=== PATIENT | male | born 1970 | race African-American/Black ===

== ENCOUNTER 2017-01-13 08:13 | Emergency (ER) | payer MEDICARE, MEDICAID ==
[~2017-01-13] VITALS: Ht 180.3 cm; Wt 71.0 kg
[~2017-01-13 08:13] MED LIST: HYDR-4133 PO; SEVE800T8 PO; [UNRECOGNIZED DRUG - CODE] PO
[2017-01-13 10:51] VITALS: BP 146/96
== END 2017-01-13 10:53 | disposition left against medical advice (07) ==
LOC: ER 08:13
DX: H61.23 Impacted cerumen, bilateral (principal); I12.0 Hypertensive chronic kidney disease with stage 5 chronic kidney disease or end stage renal disease; N18.6 End stage renal disease; F12.10 Cannabis abuse, uncomplicated; Z99.2 Dependence on renal dialysis
CPT/HCPCS: 69209; 99283

== ENCOUNTER 2017-01-17 04:07 | Inpatient (IN) | payer MEDICARE, MEDICAID ==
[~2017-01-17] VITALS: Ht 177.8 cm; Wt 68.0 kg
[2017-01-17 05:03] LABS: BASOPHILS % 1.2 % (0.0-2.0); EOSINOPHILS % 3.7 % (0.0-5.0); HEMOGLOBIN. 14.1 g/dL (14.0-18.0); LYMPHOCYTES % 13.9 % (20.0-50.0); MEAN CORPUSCULAR HEMOGLOBIN 30.8 pg (28.0-32.0); MEAN CORPUSCULAR VOLUME 91.9 fL (80.0-94.0); MEAN PLATELET VOLUME 7.9 fl (7.4-10.4); MONOCYTES % 12.3 % (2.0-8.0); NEUTROPHILS % 68.9 % (40.0-76.0); PLATELET 222 x1000/uL (130-400); RED BLOOD CELL COUNT 4.57 mill/uL (4.7-6.1); RED CELL DISTRIBUTION WIDTH 16.3 % (11.6-14.6)
[2017-01-17 05:07] LABS: INR 1.1
[2017-01-17 05:18] LABS: CARBON DIOXIDE 34 mEq/L (21-32); CHLORIDE 96 mEq/L (98-107); ETHANOL BLOOD < 10 mg/dL; TROPONIN I 0.03 ng/mL (0.00-0.04)
[2017-01-17] MEDS ORDERED: INSULIN REGULAR (HUMULIN R) 300UNITS/3ML IV SCH (05:45)
[2017-01-17] MEDS ORDERED: SODIUM BICARBONATE 8.4% 1 MEQ/ML 50ML SYR IV SCH (05:45)
[2017-01-17] MEDS ORDERED: CALCIUM CHLORIDE 1GM/10ML SYR IV SCH (05:45)
[2017-01-17] MEDS ORDERED: DEXTROSE 50% WATER 50ML SYRINGE IV SCH (05:45)
[2017-01-17] MEDS ORDERED: SODIUM POLYSTYRENE SULFONATE 15 G/60 ML BOT PO SCH (05:45)
[2017-01-17] MEDS ORDERED: NITROGLYCERIN 0.4MG TABLET SL SL PRN (11:15)
[2017-01-17] MEDS ORDERED: MAGNESIUM/ALUMINUM HYDROXIDE/SIMETHICONE 30ML UDC PO PRN (11:15)
[2017-01-17] MEDS ORDERED: DIPHENHYDRAMINE 50MG/ML VIAL IV PRN (11:15)
[2017-01-17] MEDS ORDERED: LORAZEPAM 2MG/ML CPJ IV PRN (11:15)
[2017-01-17] MEDS ORDERED: ZOLPIDEM TARTRATE 5MG TABLET PO PRN (11:15)
[2017-01-17] MEDS ORDERED: ONDANSETRON HCL 4MG/2ML VIAL IV PRN (11:15)
[2017-01-17] MEDS ORDERED: CLONIDINE 0.1MG TABLET PO PRN (11:15)
[2017-01-17] MEDS ORDERED: ACETAMINOPHEN 325MG TABLET PO PRN (11:15)
[2017-01-17] MEDS ORDERED: IPRATROPIUM/ALBUTEROL 0.5-3(2.5)MG/3ML NEB INH PRN (11:15)
[2017-01-17] MEDS ORDERED: MORPHINE SULFATE 4 MG/ML CPJ (NOT FOR IM USE) IV PRN (11:15)
[2017-01-17] MEDS ORDERED: NA PHOS,M-B/NA PHOS,DI-BA ENEMA 118ML PR PRN (11:15)
[2017-01-17] MEDS ORDERED: GUAIFENESIN 200MG/10ML SUGAR FREE UDC PO PRN (11:15)
[2017-01-17] MEDS ORDERED: TRAMADOL 50MG TABLET PO PRN (11:15)
[2017-01-17] MEDS ORDERED: DOCUSATE SODIUM 100MG CAPSULE PO PRN (11:15)
[2017-01-17 12:40] VITALS: BP 142/75
[2017-01-17] MEDS ORDERED: SEVELAMER CARBONATE 800 MG TABLET PO SCH (13:00)
[2017-01-17] MEDS ORDERED: SODIUM POLYSTYRENE SULFONATE 15 G/60 ML BOT PO NR (14:45)
[2017-01-17 15:22] LABS: CREATINE KINASE MB FRACTION 0.9 ng/mL (0.5-3.6); TROPONIN I 0.03 ng/mL (0.00-0.04)
[2017-01-17 16:00] VITALS: BP_SYST 142; BP_SYST 161; BP_DIAS 75; BP_DIAS 99
[2017-01-17] MEDS: HYDRALAZINE HCL 50MG TABLET PO SCH ×2 (16:06→22:39)
[2017-01-17] MEDS: ENOXAPARIN 30MG/0.3ML SYR SUBCUT SCH (16:07)
[2017-01-17] MEDS: SEVELAMER CARBONATE 800 MG TABLET PO SCH ×2 (16:08→19:36)
[2017-01-17 20:00] VITALS: BP 138/92
[2017-01-17 22:30] LABS: CREATINE KINASE MB FRACTION 0.8 ng/mL (0.5-3.6); TROPONIN I 0.04 ng/mL (0.00-0.04)
[2017-01-17 22:36] VITALS: BP 138/92
[2017-01-17] MEDS: FAMOTIDINE 20MG/2ML VIAL IV SCH (22:39)
[2017-01-18] VITALS (21 sets, daily range): BP systolic 128–156; BP diastolic 74–98
[2017-01-18] MEDS: HYDRALAZINE HCL 50MG TABLET PO SCH ×3 (06:00→21:32)
[2017-01-18 07:32] LABS: HEMATOCRIT. 40.7 % (42.0-52.0); HEMOGLOBIN. 13.7 g/dL (14.0-18.0); MEAN CORPUSCULAR HEMOGLOBIN 30.8 pg (28.0-32.0); MEAN CORPUSCULAR VOLUME 91.6 fL (80.0-94.0); MEAN PLATELET VOLUME 8.5 fl (7.4-10.4); PLATELET 236 x1000/uL (130-400); RED BLOOD CELL COUNT 4.44 mill/uL (4.7-6.1); RED CELL DISTRIBUTION WIDTH 16.2 % (11.6-14.6)
[2017-01-18 07:53] LABS: PHOSPHORUS 4.4 mg/dL (2.5-4.9)
[2017-01-18] MEDS: SEVELAMER CARBONATE 800 MG TABLET PO SCH ×3 (08:10→19:02)
[2017-01-18] MEDS: FOLIC ACID/VITAMIN B COMP W-C TABLET PO SCH (09:05)
[2017-01-18] MEDS: FAMOTIDINE 20MG/2ML VIAL IV SCH (09:05)
[2017-01-18] MEDS ORDERED: LIDOCAINE HCL 1% 20ML VIAL (Pyxis) INJ ONE (09:42)
[2017-01-18] MEDS ORDERED: CEFAZOLIN 1000MG PREMIX 50 ML IV ONE ×2 (09:42→10:15)
[2017-01-18] MEDS ORDERED: SODIUM BICARBONATE 4% (2.4MEQ) 5ML VIAL IV ONE (09:43)
[2017-01-18] MEDS ORDERED: IOHEXOL-300 100 ML BOTTLE ONE ×3 (09:43→11:50)
[2017-01-18] MEDS ORDERED: HEPARIN 1000 UNITS/ML 10ML ONE (09:43)
[2017-01-18] MEDS ORDERED: FENTANYL CITRATE/PF 50MCG/ML 2ML VIAL ONE ×2 (10:02→12:10)
[2017-01-18] MEDS ORDERED: HEPARIN 5000 UNITS/ML VIAL IV SCH (10:30)
[2017-01-18] MEDS ORDERED: FENTANYL CITRATE/PF 50MCG/ML 2ML VIAL IV ONE (12:30)
[2017-01-18] MEDS: ENOXAPARIN 30MG/0.3ML SYR SUBCUT SCH (13:25)
[2017-01-18 20:32] LABS: PLATELET ESTIMATE NORMAL
[2017-01-19] VITALS: BP 127/73
[2017-01-19 04:00] VITALS: BP 138/88
[2017-01-19] MEDS: HYDRALAZINE HCL 50MG TABLET PO SCH ×3 (05:42→21:28)
[2017-01-19 08:00] VITALS: BP 131/90
[2017-01-19] MEDS: FAMOTIDINE 20MG/2ML VIAL IV SCH (08:28)
[2017-01-19] MEDS: SEVELAMER CARBONATE 800 MG TABLET PO SCH ×3 (08:28→18:19)
[2017-01-19] MEDS: FOLIC ACID/VITAMIN B COMP W-C TABLET PO SCH (08:28)
[2017-01-19 12:00] VITALS: BP 136/78
[2017-01-19] MEDS: ENOXAPARIN 30MG/0.3ML SYR SUBCUT SCH (13:34)
[2017-01-19 16:00] VITALS: BP 133/88
[2017-01-19 20:00] VITALS: BP 135/87
[2017-01-20] VITALS: BP 131/83
[2017-01-20 05:28] VITALS: BP 130/91
[2017-01-20] MEDS: HYDRALAZINE HCL 50MG TABLET PO SCH ×3 (05:30→21:02)
[2017-01-20 07:28] LABS: HEMATOCRIT. 39.3 % (42.0-52.0); HEMOGLOBIN. 13.3 g/dL (14.0-18.0); MEAN CORPUSCULAR HEMOGLOBIN 30.9 pg (28.0-32.0); MEAN CORPUSCULAR VOLUME 91.7 fL (80.0-94.0); MEAN PLATELET VOLUME 8.4 fl (7.4-10.4); PLATELET 203 x1000/uL (130-400); RED BLOOD CELL COUNT 4.29 mill/uL (4.7-6.1); RED CELL DISTRIBUTION WIDTH 16.1 % (11.6-14.6)
[2017-01-20 08:00] VITALS: BP 132/88
[2017-01-20] MEDS: SEVELAMER CARBONATE 800 MG TABLET PO SCH ×3 (08:10→18:08)
[2017-01-20] MEDS ORDERED: BACITRACIN ZINC 15GM TUBE TOP ONE (08:58)
[2017-01-20] MEDS ORDERED: GELATIN SPONGE,ABSORBABLE SZ 100 ONE (08:58)
[2017-01-20] MEDS ORDERED: THROMBIN (BOVINE) 5000 UNITS/VIAL TOP ONE (08:58)
[2017-01-20] MEDS ORDERED: LIDOCAINE HCL 1% 20ML VIAL (Pyxis) INJ ONE (08:59)
[2017-01-20] MEDS ORDERED: BUPIVACAINE HCL/PF 0.5% (5MG/ML) 10ML ONE (08:59)
[2017-01-20] MEDS ORDERED: HEPARIN SODIUM 1,000 UNIT/1ML VIAL IV ONE (08:59)
[2017-01-20] MEDS ORDERED: NORMAL SALINE 0.9% 10 ML SYR ONE (08:59)
[2017-01-20] MEDS ORDERED: BACITRACIN 50,000 UNITS/VIAL ONE (09:00)
[2017-01-20] MEDS: FAMOTIDINE 20MG/2ML VIAL IV SCH (09:00)
[2017-01-20] MEDS ORDERED: LABETALOL HCL 5MG/ML VIAL 20ML IV ONE (09:46)
[2017-01-20] MEDS ORDERED: DEXAMETHASONE 4MG/ML 1ML VIAL ONE (09:46)
[2017-01-20] MEDS ORDERED: CEFAZOLIN SODIUM 1000MG/VIAL ONE (09:46)
[2017-01-20] MEDS ORDERED: VASOPRESSIN 20 UNIT/ML 1ML ONE (10:24)
[2017-01-20] MEDS ORDERED: HEPARIN 1000 UNITS/ML 10ML ONE (10:24)
[2017-01-20] MEDS ORDERED: LABETALOL HCL 20MG/4ML CARPUJECT IV PRN (10:30)
[2017-01-20] MEDS ORDERED: MEPERIDINE HCL/PF 25MG/ML CPJ IV PRN (10:30)
[2017-01-20] MEDS ORDERED: ONDANSETRON HCL 4MG/2ML VIAL IV PRN (10:30)
[2017-01-20] MEDS: HYDROMORPHONE HCL/PF 2MG/ML CPJ IV PRN ×5 (11:54→18:51)
[2017-01-20 12:00] VITALS: BP 137/77
[2017-01-20] MEDS: FOLIC ACID/VITAMIN B COMP W-C TABLET PO SCH (14:23)
[2017-01-20] MEDS: ENOXAPARIN 30MG/0.3ML SYR SUBCUT SCH (14:24)
[2017-01-20 16:39] VITALS: BP 127/79
[2017-01-20 20:00] VITALS: BP 144/104
[2017-01-20 20:56] LABS: ATYPICAL LYMPHOCYTES 2; PLATELET ESTIMATE NORMAL
[2017-01-21] VITALS: BP 123/72
[2017-01-21] MEDS: MORPHINE SULFATE 4 MG/ML CPJ (NOT FOR IM USE) IV PRN ×3 (00:25→08:45)
[2017-01-21 04:00] VITALS: BP 127/83
[2017-01-21] MEDS: HYDRALAZINE HCL 50MG TABLET PO SCH (06:00)
[2017-01-21 08:00] VITALS: BP 118/74
[2017-01-21] MEDS: FOLIC ACID/VITAMIN B COMP W-C TABLET PO SCH (08:44)
[2017-01-21] MEDS: FAMOTIDINE 20MG/2ML VIAL IV SCH (08:44)
[2017-01-21] MEDS: SEVELAMER CARBONATE 800 MG TABLET PO SCH (08:44)
[2017-01-21 08:45] VITALS: BP 118/74
== END 2017-01-21 11:00 | disposition left against medical advice (07) | DRG 252 ==
LOC: ER 05:10 → 7WST 05:11 → ENRESERV 10:08 → SUPCPDRO 11:00
PROVIDERS: ADMIT Internal Medicine; ATTEND Internal Medicine
PROC: 05C83ZZ Extirpation of Matter from Left Axillary Vein, Percutaneous Approach (ICD-10-PCS; 2017-01-18)
PROC: 03783DZ Dilation of Left Brachial Artery with Intraluminal Device, Percutaneous Approach (ICD-10-PCS; 2017-01-18)
PROC: B51W1ZZ Fluoroscopy of Dialysis Shunt/Fistula using Low Osmolar Contrast (ICD-10-PCS; 2017-01-18)
PROC: B51N1ZA Fluoroscopy of Left Upper Extremity Veins using Low Osmolar Contrast, Guidance (ICD-10-PCS; 2017-01-18)
PROC: B5181ZA Fluoroscopy of Superior Vena Cava using Low Osmolar Contrast, Guidance (ICD-10-PCS; 2017-01-18)
PROC: B31J1ZZ Fluoroscopy of Left Upper Extremity Arteries using Low Osmolar Contrast (ICD-10-PCS; 2017-01-18)
PROC: 03WY03Z Revision of Infusion Device in Upper Artery, Open Approach (ICD-10-PCS; 2017-01-20)
PROC: 03Q80ZZ Repair Left Brachial Artery, Open Approach (ICD-10-PCS; principal; 2017-01-20 15:30)
PROC: 5A1D00Z (ICD-10-PCS; 2017-01-21)
DX: T82.868A Thrombosis due to vascular prosthetic devices, implants and grafts, initial encounter (principal); I50.33 Acute on chronic diastolic (congestive) heart failure; E44.0 Moderate protein-calorie malnutrition; N25.81 Secondary hyperparathyroidism of renal origin; N18.6 End stage renal disease; E87.5 Hyperkalemia; N11.9 Chronic tubulo-interstitial nephritis, unspecified; I13.2 Hypertensive heart and chronic kidney disease with heart failure and with stage 5 chronic kidney disease, or end stage renal disease; N13.9 Obstructive and reflux uropathy, unspecified; I72.1 Aneurysm of artery of upper extremity; Y83.2 Surgical operation with anastomosis, bypass or graft as the cause of abnormal reaction of the patient, or of later complication, without mention of misadventure at the time of the procedure; D63.8 Anemia in other chronic diseases classified elsewhere; F17.210 Nicotine dependence, cigarettes, uncomplicated; Z53.21 Procedure and treatment not carried out due to patient leaving prior to being seen by health care provider; M1A.9XX1 Chronic gout, unspecified, with tophus (tophi); Z91.19 Patient's noncompliance with other medical treatment and regimen; Z99.2 Dependence on renal dialysis; Z79.899 Other long term (current) drug therapy; Q78.9 Osteochondrodysplasia, unspecified; Z68.21 Body mass index [BMI] 21.0-21.9, adult
CPT/HCPCS: 36415; 36906; 71010; 76937; 80048; 80053; 80061; 82550; 82553; 82962; 83036; 83735; 83970; 84100; 84132; 84484; 85025; 85610; 85730; 88304; 93005; 96374; 96375; 99291; A4216; C1725; C1766; C1768; C1769; C1876; C2630; G0482; J0690; J1100; J1170; J1644; J1650; J1815; J2270; J3010; J3490; Q9967

== ENCOUNTER 2017-02-28 03:52 | Inpatient (IN) | payer MEDICARE, MEDICAID ==
[2017-02-28] VITALS (10 sets, daily range): BP systolic 151–159; BP diastolic 100–112
[~2017-02-28] VITALS: Ht 177.8 cm; Wt 68.0 kg
[2017-02-28 04:36] LABS: BASOPHILS % 1.6 % (0.0-2.0); EOSINOPHILS % 7.7 % (0.0-5.0); HEMATOCRIT. 38.6 % (42.0-52.0); HEMOGLOBIN. 13.2 g/dL (14.0-18.0); LYMPHOCYTES % 20.5 % (20.0-50.0); MEAN CORPUSCULAR HEMOGLOBIN 32.4 pg (28.0-32.0); MEAN CORPUSCULAR VOLUME 94.3 fL (80.0-94.0); MEAN PLATELET VOLUME 7.6 fl (7.4-10.4); MONOCYTES % 9.2 % (2.0-8.0); PLATELET 263 x1000/uL (130-400); RED BLOOD CELL COUNT 4.09 mill/uL (4.7-6.1); RED CELL DISTRIBUTION WIDTH 18.6 % (11.6-14.6)
[2017-02-28 04:43] LABS: PROTHROMBIN TIME 10.8 sec (9.4-11.6)
[2017-02-28 04:52] LABS: CHLORIDE 87 mEq/L (98-107)
[2017-02-28 05:00] LABS: CARBON DIOXIDE 37 mEq/L (21-32)
[2017-02-28] MEDS ORDERED: MEDICATION NOT ON FORMULARY EA XX SCH (10:00)
[2017-02-28] MEDS ORDERED: HYDROCODONE/APAP 7.5/325MG 1 TAB TABLET PO PRN (10:00)
[2017-02-28] MEDS ORDERED: HYDRALAZINE HCL 10MG TABLET PO NR (11:02)
[2017-02-28] MEDS ORDERED: CALCIUM CARBONATE 500MG TABLET CHEW PO SCH (12:50)
[2017-02-28] MEDS ORDERED: SEVELAMER CARBONATE 800 MG TABLET PO SCH (12:50)
[2017-02-28] MEDS ORDERED: SODIUM BICARBONATE 4% (2.4MEQ) 5ML VIAL IV ONE (13:10)
[2017-02-28] MEDS ORDERED: IOHEXOL-300 100 ML BOTTLE ONE (13:10)
[2017-02-28] MEDS ORDERED: HEPARIN 1000 UNITS/ML 10ML ONE (13:10)
[2017-02-28] MEDS ORDERED: LIDOCAINE HCL 1% 20ML VIAL (Pyxis) INJ ONE (13:10)
[2017-02-28] MEDS ORDERED: DIPHENHYDRAMINE 50MG/ML VIAL ONE (13:21)
[2017-02-28] MEDS ORDERED: FENTANYL CITRATE/PF 50MCG/ML 2ML VIAL ONE (13:21)
[2017-02-28] MEDS ORDERED: CEFAZOLIN 1000MG PREMIX 50 ML IV ONE (13:21)
[2017-02-28] MEDS ORDERED: DIPHENHYDRAMINE 50MG/ML VIAL IV NR (14:15)
[2017-02-28] MEDS ORDERED: CEFAZOLIN 1000MG PREMIX 50 ML IV NR (14:15)
[2017-02-28] MEDS ORDERED: FENTANYL CITRATE/PF 50MCG/ML 2ML VIAL IV NR (14:15)
[2017-02-28] MEDS ORDERED: HEPARIN 5000 UNITS/ML VIAL IV ONE (14:15)
[2017-02-28] MEDS ORDERED: CLONIDINE 0.2MG TABLET PO NR (16:15)
[2017-03-01] MEDS ORDERED: HYDRALAZINE HCL 10MG TABLET PO SCH (09:00)
== END 2017-02-28 17:00 | disposition home or self-care (01) | DRG 252 ==
LOC: ER 03:53 → 6WST 05:46 → EDBEDREQ 05:49 → EDBEDREQTM 05:49 → ENRESERV 07:34
PROVIDERS: ADMIT Internal Medicine; ATTEND Internal Medicine
PROC: B51W1ZZ Fluoroscopy of Dialysis Shunt/Fistula using Low Osmolar Contrast (ICD-10-PCS; principal; 2017-02-28)
PROC: 03CY3ZZ Extirpation of Matter from Upper Artery, Percutaneous Approach (ICD-10-PCS; 2017-02-28)
PROC: 037A3ZZ Dilation of Left Ulnar Artery, Percutaneous Approach (ICD-10-PCS; 2017-02-28)
PROC: 037A3ZZ Dilation of Left Ulnar Artery, Percutaneous Approach (ICD-10-PCS; 2017-02-28)
PROC: B5181ZA Fluoroscopy of Superior Vena Cava using Low Osmolar Contrast, Guidance (ICD-10-PCS; 2017-02-28)
PROC: 3E03317 Introduction of Other Thrombolytic into Peripheral Vein, Percutaneous Approach (ICD-10-PCS; 2017-02-28)
PROC: B31J1ZZ Fluoroscopy of Left Upper Extremity Arteries using Low Osmolar Contrast (ICD-10-PCS; 2017-02-28)
DX: T82.868A Thrombosis due to vascular prosthetic devices, implants and grafts, initial encounter (principal); N18.6 End stage renal disease; I12.0 Hypertensive chronic kidney disease with stage 5 chronic kidney disease or end stage renal disease; N11.9 Chronic tubulo-interstitial nephritis, unspecified; E44.1 Mild protein-calorie malnutrition; E88.09 Other disorders of plasma-protein metabolism, not elsewhere classified; N25.81 Secondary hyperparathyroidism of renal origin; N13.9 Obstructive and reflux uropathy, unspecified; D64.9 Anemia, unspecified; Y83.2 Surgical operation with anastomosis, bypass or graft as the cause of abnormal reaction of the patient, or of later complication, without mention of misadventure at the time of the procedure; M1A.9XX1 Chronic gout, unspecified, with tophus (tophi); Z68.21 Body mass index [BMI] 21.0-21.9, adult; F17.210 Nicotine dependence, cigarettes, uncomplicated; N25.0 Renal osteodystrophy; Z99.2 Dependence on renal dialysis; Y92.89 Other specified places as the place of occurrence of the external cause; Z79.899 Other long term (current) drug therapy
CPT/HCPCS: 36415; 36905; 71010; 80053; 85025; 85610; 99285; C1725; C1766; C1769; C2630; J0690; J1200; J1644; J3010; J3490; Q9967

== ENCOUNTER 2017-04-01 04:07 | Inpatient (IN) | payer MEDICARE, MEDICAID ==
[~2017-04-01] VITALS: Ht 177.8 cm; Wt 68.0 kg
[2017-04-01 05:34] LABS: HEMATOCRIT 40.4 % (42.0-52.0); HEMOGLOBIN 13.4 g/dL (14.0-18.0); MEAN CORPUSCULAR HEMOGLOBIN 31.4 pg (28.0-32.0); MEAN CORPUSCULAR VOLUME 94.4 fL (80.0-94.0); PLATELET 249 x1000/uL (130-400); RED BLOOD CELL COUNT 4.28 mill/uL (4.7-6.1); RED CELL DISTRIBUTION WIDTH 19.5 % (11.6-14.6)
[2017-04-01] MEDS ORDERED: CLONIDINE 0.1MG TABLET PO PRN (06:30)
[2017-04-01] MEDS ORDERED: ACETAMINOPHEN 325MG TABLET PO PRN (06:30)
[2017-04-01] MEDS ORDERED: ENOXAPARIN 40MG/0.4ML SYR SUBCUT SCH (06:30)
[2017-04-01] MEDS ORDERED: NITROGLYCERIN 0.4MG TABLET SL SL PRN (06:30)
[2017-04-01] MEDS ORDERED: TRAMADOL 50MG TABLET PO PRN (06:30)
[2017-04-01] MEDS ORDERED: NA PHOS,M-B/NA PHOS,DI-BA ENEMA 118ML PR PRN (06:30)
[2017-04-01] MEDS ORDERED: DIPHENHYDRAMINE 50MG/ML VIAL IV PRN (06:30)
[2017-04-01] MEDS ORDERED: LORAZEPAM 0.5MG TABLET PO PRN (06:30)
[2017-04-01] MEDS ORDERED: GUAIFENESIN 200MG/10ML SUGAR FREE UDC PO PRN (06:30)
[2017-04-01] MEDS ORDERED: MAGNESIUM/ALUMINUM HYDROXIDE/SIMETHICONE 30ML UDC PO PRN (06:30)
[2017-04-01] MEDS ORDERED: ZOLPIDEM TARTRATE 5MG TABLET PO PRN (06:30)
[2017-04-01] MEDS ORDERED: ONDANSETRON HCL 4MG/2ML VIAL IV PRN (06:30)
[2017-04-01] MEDS ORDERED: IPRATROPIUM/ALBUTEROL 0.5-3(2.5)MG/3ML NEB INH PRN (06:30)
[2017-04-01] MEDS ORDERED: DOCUSATE SODIUM 100MG CAPSULE PO PRN (06:30)
[2017-04-01 08:00] VITALS: BP_SYST 150; BP_SYST 153; BP_DIAS 97
[2017-04-01] MEDS ORDERED: SEVELAMER CARBONATE 800 MG TABLET PO SCH (08:10)
[2017-04-01] MEDS ORDERED: FOLIC ACID/VITAMIN B COMP W-C TABLET PO SCH (09:00)
[2017-04-01] MEDS ORDERED: ENOXAPARIN 30MG/0.3ML SYR SUBCUT SCH (09:00)
[2017-04-01] MEDS ORDERED: FAMOTIDINE 20MG/2ML VIAL IV SCH ×2 (09:00)
[2017-04-01] MEDS ORDERED: HYDRALAZINE HCL 50MG TABLET PO SCH (14:00)
== END 2017-04-01 12:05 | disposition left against medical advice (07) | DRG 314 ==
LOC: ER 04:07 → 6EST 05:33 → ENRESERVTM 07:00 → ENRESERVDT 07:00
PROVIDERS: ADMIT Internal Medicine; ATTEND Internal Medicine
DX: T82.818A Embolism due to vascular prosthetic devices, implants and grafts, initial encounter (principal); N18.6 End stage renal disease; I12.0 Hypertensive chronic kidney disease with stage 5 chronic kidney disease or end stage renal disease; E87.5 Hyperkalemia; N11.9 Chronic tubulo-interstitial nephritis, unspecified; N13.9 Obstructive and reflux uropathy, unspecified; F17.210 Nicotine dependence, cigarettes, uncomplicated; Z53.21 Procedure and treatment not carried out due to patient leaving prior to being seen by health care provider; Y83.2 Surgical operation with anastomosis, bypass or graft as the cause of abnormal reaction of the patient, or of later complication, without mention of misadventure at the time of the procedure; D63.8 Anemia in other chronic diseases classified elsewhere; K21.9 Gastro-esophageal reflux disease without esophagitis; M1A.9XX1 Chronic gout, unspecified, with tophus (tophi); N25.0 Renal osteodystrophy; Z99.2 Dependence on renal dialysis; Y92.89 Other specified places as the place of occurrence of the external cause; Z79.899 Other long term (current) drug therapy
CPT/HCPCS: 36415; 80048; 80061; 83036; 85027; 99285; J1650; J3490

== ENCOUNTER 2017-04-22 04:01 | Inpatient (IN) | payer MEDICARE, MEDICAID ==
[~2017-04-22] VITALS: Ht 177.8 cm; Wt 70.3 kg
[2017-04-22 06:08] LABS: BASOPHILS % 1.2 % (0.0-2.0); EOSINOPHILS % 3.1 % (0.0-5.0); HEMATOCRIT. 39.7 % (42.0-52.0); HEMOGLOBIN. 13.1 g/dL (14.0-18.0); LYMPHOCYTES % 13.8 % (20.0-50.0); MEAN CORPUSCULAR HEMOGLOBIN 30.9 pg (28.0-32.0); MEAN CORPUSCULAR VOLUME 93.6 fL (80.0-94.0); MEAN PLATELET VOLUME 7.8 fl (7.4-10.4); MONOCYTES % 10.5 % (2.0-8.0); NEUTROPHILS % 71.4 % (40.0-76.0); PLATELET 290 x1000/uL (130-400); RED BLOOD CELL COUNT 4.24 mill/uL (4.7-6.1)
[2017-04-22 06:14] LABS: INR 1.1; PARTIAL THROMBOPLASTIN TIME 28.1 sec (23.4-31.0); PROTHROMBIN TIME 11.1 sec (9.4-11.6)
[2017-04-22] MEDS ORDERED: SODIUM POLYSTYRENE SULFONATE 15 G/60 ML BOT PO ONE (07:00)
[2017-04-22 09:30] VITALS: BP 127/83
[2017-04-22] MEDS ORDERED: SODIUM POLYSTYRENE SULFONATE 15 G/60 ML BOT PR SCH (10:00)
[2017-04-22 11:33] VITALS: BP 149/94
== END 2017-04-22 12:15 | disposition home or self-care (01) | DRG 314 ==
LOC: ER 04:01 → 6EST 06:04 → ENRESERV 07:29
PROVIDERS: ADMIT Internal Medicine; ATTEND Internal Medicine
DX: T82.868A Thrombosis due to vascular prosthetic devices, implants and grafts, initial encounter (principal); N18.6 End stage renal disease; I12.0 Hypertensive chronic kidney disease with stage 5 chronic kidney disease or end stage renal disease; E87.5 Hyperkalemia; Y84.1 Kidney dialysis as the cause of abnormal reaction of the patient, or of later complication, without mention of misadventure at the time of the procedure; Y92.89 Other specified places as the place of occurrence of the external cause; Z79.899 Other long term (current) drug therapy; Z99.2 Dependence on renal dialysis
CPT/HCPCS: 36415; 80048; 85025; 85610; 85730; 99285

== ENCOUNTER 2017-09-21 04:05 | Emergency (ER) | payer MEDICARE, MEDICAID ==
[2017-09-21] VITALS (14 sets, daily range): BP systolic 93–116; BP diastolic 60–79
[~2017-09-21] VITALS: Ht 177.8 cm; Wt 59.3 kg
[2017-09-21 04:45] LABS: EOSINOPHILS % 1.4 % (0.0-5.0); HEMATOCRIT. 43.7 % (42.0-52.0); HEMOGLOBIN. 14.6 g/dL (14.0-18.0); LYMPHOCYTES % 18.6 % (20.0-50.0); MEAN CORPUSCULAR HEMOGLOBIN 30.1 pg (28.0-32.0); MEAN PLATELET VOLUME 7.5 fl (7.4-10.4); MONOCYTES % 8.8 % (2.0-8.0); NEUTROPHILS % 70.2 % (40.0-76.0); PLATELET 291 x1000/uL (130-400); RED BLOOD CELL COUNT 4.85 mill/uL (4.7-6.1); RED CELL DISTRIBUTION WIDTH 16.3 % (11.6-14.6)
[2017-09-21 04:52] LABS: CHLORIDE 87 mEq/L (98-107)
[2017-09-21 04:54] LABS: INR 1.1; PROTHROMBIN TIME 11.1 sec (9.4-11.6)
[2017-09-21] MEDS ORDERED: IOHEXOL-300 100 ML BOTTLE ONE (09:31)
[2017-09-21] MEDS ORDERED: HEPARIN 1000 UNITS/ML 10ML ONE (09:31)
[2017-09-21] MEDS ORDERED: SODIUM BICARBONATE 4% (2.4MEQ) 5ML VIAL IV ONE (09:31)
[2017-09-21] MEDS ORDERED: LIDOCAINE HCL 1% 20ML VIAL (Pyxis) INJ ONE (09:31)
[2017-09-21] MEDS ORDERED: CEFAZOLIN 1000MG PREMIX 50 ML IV ONE ×2 (09:37→10:15)
[2017-09-21] MEDS ORDERED: MIDAZOLAM HCL 2 MG/2 ML VIAL ONE (09:37)
[2017-09-21] MEDS ORDERED: FENTANYL CITRATE/PF 50MCG/ML 2ML VIAL ONE (09:37)
[2017-09-21] MEDS ORDERED: ONDANSETRON HCL 4MG/2ML VIAL ONE (10:05)
[2017-09-21] MEDS ORDERED: FENTANYL CITRATE/PF 50MCG/ML 2ML VIAL IV ONE (10:15)
[2017-09-21] MEDS ORDERED: MIDAZOLAM HCL 2 MG/2 ML VIAL IV ONE (10:15)
[2017-09-21] MEDS ORDERED: ONDANSETRON HCL 4MG/2ML VIAL IV ONE (10:15)
[2017-09-21] MEDS ORDERED: HEPARIN SODIUM 1,000 UNIT/1ML VIAL IV ONE (10:30)
[2017-09-21] MEDS ORDERED: IOHEXOL-300 50 ML BOTTLE IV ONE (10:30)
[2017-09-21] MEDS ORDERED: HYDROCODONE/ACETAMINOPHEN 5/325MG TABLET PO ONE (11:45)
== END 2017-09-21 12:02 | disposition home or self-care (01) ==
LOC: ER 04:05
DX: Z45.2 Encounter for adjustment and management of vascular access device (principal); N18.6 End stage renal disease; F12.10 Cannabis abuse, uncomplicated; Z99.2 Dependence on renal dialysis
CPT/HCPCS: 36415; 36906; 36907; 80053; 85025; 85610; 96365; 96375; 99285; C1725; C1769; C1876; C2630; J0690; J1644; J2250; J2405; J3010; J3490; J7050; Q9967

== ENCOUNTER 2017-10-30 17:02 | Inpatient (IN) | payer MEDICARE, MEDICAID ==
[~2017-10-30] VITALS: Ht 180.3 cm; Wt 59.0 kg
[2017-10-30] MEDS ORDERED: ACETAMINOPHEN 325MG TABLET PO ONE (18:15)
[2017-10-30 19:33] LABS: BASOPHILS % 0.8 % (0.0-2.0); EOSINOPHILS % 1.9 % (0.0-5.0); HEMATOCRIT. 41.3 % (42.0-52.0); HEMOGLOBIN. 13.7 g/dL (14.0-18.0); LYMPHOCYTES % 18.6 % (20.0-50.0); MEAN CORPUSCULAR HEMOGLOBIN 30.3 pg (28.0-32.0); MEAN PLATELET VOLUME 7.4 fl (7.4-10.4); MONOCYTES % 9.4 % (2.0-8.0); NEUTROPHILS % 69.3 % (40.0-76.0); PLATELET 302 x1000/uL (130-400); RED BLOOD CELL COUNT 4.53 mill/uL (4.7-6.1); RED CELL DISTRIBUTION WIDTH 20.3 % (11.6-14.6)
[2017-10-30 19:38] LABS: PROTHROMBIN TIME 10.7 sec (9.4-11.6)
[2017-10-30] MEDS ORDERED: ZOLPIDEM TARTRATE 5MG TABLET PO PRN (20:00)
[2017-10-30] MEDS ORDERED: NA PHOS,M-B/NA PHOS,DI-BA ENEMA 118ML PR PRN (20:00)
[2017-10-30] MEDS ORDERED: CLONIDINE 0.1MG TABLET PO PRN (20:00)
[2017-10-30] MEDS ORDERED: DIPHENHYDRAMINE 50MG/ML VIAL IV PRN (20:00)
[2017-10-30] MEDS ORDERED: GUAIFENESIN 200MG/10ML SUGAR FREE UDC PO PRN (20:00)
[2017-10-30] MEDS ORDERED: DOCUSATE SODIUM 100MG CAPSULE PO PRN (20:00)
[2017-10-30] MEDS ORDERED: NITROGLYCERIN 0.4MG TABLET SL SL PRN (20:00)
[2017-10-30] MEDS ORDERED: LORAZEPAM 0.5MG TABLET PO PRN (20:00)
[2017-10-30] MEDS ORDERED: ONDANSETRON HCL 4MG/2ML VIAL IV PRN (20:00)
[2017-10-30] MEDS ORDERED: MAGNESIUM/ALUMINUM HYDROXIDE/SIMETHICONE 30ML UDC PO PRN (20:00)
[2017-10-30] MEDS ORDERED: SODIUM POLYSTYRENE SULFONATE 15 G/60 ML BOT PO ONE (20:45)
[2017-10-31] VITALS: BP 114/80
[2017-10-31] MEDS ORDERED: SODIUM POLYSTYRENE SULFONATE 15 G/60 ML BOT PO NR
[2017-10-31] MEDS: MORPHINE SULFATE 4 MG/ML CPJ (NOT FOR IM USE) IV PRN ×2 (00:22→04:33)
[2017-10-31 04:00] VITALS: BP 116/70
[2017-10-31] MEDS: SEVELAMER CARBONATE 800 MG TABLET PO SCH ×3 (06:40→18:25)
[2017-10-31 08:00] VITALS: BP 111/79
[2017-10-31] MEDS: ENOXAPARIN 30MG/0.3ML SYR SUBCUT SCH ×2 (08:53→08:55)
[2017-10-31] MEDS: FAMOTIDINE 20MG TABLET PO SCH (08:53)
[2017-10-31] MEDS: FOLIC ACID/VITAMIN B COMP W-C TABLET PO SCH (08:53)
[2017-10-31 12:00] VITALS: BP 119/80
[2017-10-31 16:00] VITALS: BP 114/83
[2017-10-31] MEDS: CALCIUM CARBONATE 500MG TABLET CHEW PO SCH (18:25)
[2017-10-31 20:00] VITALS: BP 119/68
[2017-10-31] MEDS: TRAMADOL 50MG TABLET PO PRN (22:48)
[2017-11-01] VITALS: BP 107/74
[2017-11-01 04:00] VITALS: BP 101/68
[2017-11-01 07:32] LABS: HEMATOCRIT. 43.3 % (42.0-52.0); HEMOGLOBIN. 14.4 g/dL (14.0-18.0); MEAN CORPUSCULAR HEMOGLOBIN 30.6 pg (28.0-32.0); MEAN CORPUSCULAR VOLUME 92.1 fL (80.0-94.0); MEAN PLATELET VOLUME 8.1 fl (7.4-10.4); PLATELET 248 x1000/uL (130-400)
[2017-11-01] MEDS: SEVELAMER CARBONATE 800 MG TABLET PO SCH ×3 (08:09→17:22)
[2017-11-01] MEDS: CALCIUM CARBONATE 500MG TABLET CHEW PO SCH ×3 (08:09→17:23)
[2017-11-01] MEDS: FOLIC ACID/VITAMIN B COMP W-C TABLET PO SCH (08:09)
[2017-11-01] MEDS: FAMOTIDINE 20MG TABLET PO SCH (08:09)
[2017-11-01] MEDS: ENOXAPARIN 30MG/0.3ML SYR SUBCUT SCH ×2 (08:14→08:18)
[2017-11-01 08:34] VITALS: BP 98/65
[2017-11-01 08:43] LABS: PHOSPHORUS 8.2 mg/dL (2.5-4.9)
[2017-11-01] MEDS: TRAMADOL 50MG TABLET PO PRN (09:44)
[2017-11-01] MEDS: ACETAMINOPHEN 325MG TABLET PO PRN ×2 (11:09→16:30)
[2017-11-01 12:17] LABS: PLATELET ESTIMATE NORMAL
[2017-11-01 12:32] VITALS: BP 94/64
[2017-11-01 16:47] VITALS: BP 110/45
[2017-11-01 20:08] VITALS: BP 123/85
[2017-11-02 00:32] VITALS: BP 109/72
[2017-11-02 04:00] VITALS: BP 111/71
[2017-11-02 07:13] LABS: BASOPHILS % 0.4 % (0.0-2.0); EOSINOPHILS % 0.7 % (0.0-5.0); HEMATOCRIT. 40.1 % (42.0-52.0); HEMOGLOBIN. 13.1 g/dL (14.0-18.0); LYMPHOCYTES % 15.2 % (20.0-50.0); MEAN CORPUSCULAR HEMOGLOBIN 30.3 pg (28.0-32.0); MEAN CORPUSCULAR VOLUME 93.1 fL (80.0-94.0); MEAN PLATELET VOLUME 8.1 fl (7.4-10.4); MONOCYTES % 14.3 % (2.0-8.0); NEUTROPHILS % 69.4 % (40.0-76.0); PLATELET 238 x1000/uL (130-400); RED BLOOD CELL COUNT 4.31 mill/uL (4.7-6.1); RED CELL DISTRIBUTION WIDTH 21.4 % (11.6-14.6)
[2017-11-02 07:39] LABS: PHOSPHORUS 7.3 mg/dL (2.5-4.9)
[2017-11-02] MEDS ORDERED: SEVELAMER CARBONATE 800 MG TABLET PO SCH (07:50)
[2017-11-02] MEDS: CALCIUM CARBONATE 500MG TABLET CHEW PO SCH (07:50)
[2017-11-02 08:00] VITALS: BP 116/78
[2017-11-02] MEDS: FAMOTIDINE 20MG TABLET PO SCH (09:00)
[2017-11-02] MEDS: FOLIC ACID/VITAMIN B COMP W-C TABLET PO SCH (09:00)
[2017-11-02] MEDS: ENOXAPARIN 30MG/0.3ML SYR SUBCUT SCH (09:00)
[2017-11-02 09:56] VITALS: BP 112/68
== END 2017-11-02 10:15 | disposition home or self-care (01) | DRG 564 ==
LOC: ER 17:02 → 6WST 19:43 → EDBEDREQTM 19:48 → EDBEDREQ 19:48 → SUPCPDRO 19:49 → ENRESERV 20:40 → CANBEDREQ 20:49 → ENRESERV 22:44
PROVIDERS: ADMIT Internal Medicine; ATTEND Internal Medicine
PROC: 5A1D70Z Performance of Urinary Filtration, Intermittent, Less than 6 Hours Per Day (ICD-10-PCS; principal; 2017-10-31)
PROC: 5A1D70Z Performance of Urinary Filtration, Intermittent, Less than 6 Hours Per Day (ICD-10-PCS; 2017-11-01)
DX: M25.461 Effusion, right knee (principal); N18.6 End stage renal disease; I12.0 Hypertensive chronic kidney disease with stage 5 chronic kidney disease or end stage renal disease; N11.9 Chronic tubulo-interstitial nephritis, unspecified; N25.81 Secondary hyperparathyroidism of renal origin; Z99.2 Dependence on renal dialysis; E87.5 Hyperkalemia; E83.41 Hypermagnesemia; D63.8 Anemia in other chronic diseases classified elsewhere; F17.210 Nicotine dependence, cigarettes, uncomplicated; G89.29 Other chronic pain; K21.9 Gastro-esophageal reflux disease without esophagitis; M19.90 Unspecified osteoarthritis, unspecified site; M1A.9XX1 Chronic gout, unspecified, with tophus (tophi); N13.9 Obstructive and reflux uropathy, unspecified; N25.0 Renal osteodystrophy; Z91.19 Patient's noncompliance with other medical treatment and regimen; Z87.81 Personal history of (healed) traumatic fracture; Z98.1 Arthrodesis status
CPT/HCPCS: 36415; 73562; 73721; 80048; 80061; 83036; 83735; 83970; 84100; 85025; 85610; 85730; 93005; 93970; 97162; 99285; J1650; J2270; J7030

== ENCOUNTER 2018-01-26 23:41 | Inpatient (IN) | payer MEDICARE, MEDICAID ==
[~2018-01-26] VITALS: Ht 177.8 cm; Wt 56.7 kg
[2018-01-27 02:02] LABS: HEMATOCRIT 45.8 % (42.0-52.0); HEMOGLOBIN 15.4 g/dL (14.0-18.0); MEAN CORPUSCULAR HEMOGLOBIN 31.6 pg (28.0-32.0); MEAN CORPUSCULAR VOLUME 94.2 fL (80.0-94.0); PLATELET 300 x1000/uL (130-400); RED BLOOD CELL COUNT 4.86 mill/uL (4.7-6.1); RED CELL DISTRIBUTION WIDTH 16.3 % (11.6-14.6)
[2018-01-27 02:07] LABS: CHLORIDE 85 mEq/L (98-107)
[2018-01-27 08:00] VITALS: BP 110/73
[2018-01-27 08:30] VITALS: BP 110/73
[2018-01-27] MEDS ORDERED: CLONIDINE 0.1MG TABLET PO PRN (09:45)
[2018-01-27] MEDS ORDERED: LIDOCAINE HCL 1% 20ML VIAL (Pyxis) INJ ONE (10:46)
[2018-01-27] MEDS ORDERED: HEPARIN 100 UNITS/1 ML VIAL IVF PRN (11:45)
[2018-01-27 12:00] VITALS: BP 119/80
[2018-01-27] MEDS: TRAMADOL 50MG TABLET PO PRN ×2 (13:25→17:31)
[2018-01-27 16:00] VITALS: BP 94/63
[2018-01-27] MEDS: SEVELAMER CARBONATE 800 MG TABLET PO SCH (18:06)
[2018-01-27 20:00] VITALS: BP 104/72
[2018-01-27] MEDS ORDERED: TEMAZEPAM 15MG CAPSULE PO PRN (21:00)
[2018-01-28] VITALS: BP 101/66
[2018-01-28 04:00] VITALS: BP 99/56
[2018-01-28 06:41] LABS: BASOPHILS % 0.9 % (0.0-2.0); EOSINOPHILS % 2.9 % (0.0-5.0); HEMATOCRIT. 43.1 % (42.0-52.0); HEMOGLOBIN. 14.2 g/dL (14.0-18.0); LYMPHOCYTES % 18.8 % (20.0-50.0); MEAN CORPUSCULAR HEMOGLOBIN 31.4 pg (28.0-32.0); MEAN CORPUSCULAR VOLUME 95.3 fL (80.0-94.0); MEAN PLATELET VOLUME 8.1 fl (7.4-10.4); MONOCYTES % 12.9 % (2.0-8.0); NEUTROPHILS % 64.5 % (40.0-76.0); PLATELET 234 x1000/uL (130-400); RED BLOOD CELL COUNT 4.53 mill/uL (4.7-6.1); RED CELL DISTRIBUTION WIDTH 16.6 % (11.6-14.6)
[2018-01-28 07:02] LABS: PHOSPHORUS 7.8 mg/dL (2.5-4.9)
[2018-01-28] MEDS: TRAMADOL 50MG TABLET PO PRN (09:19)
[2018-01-28] MEDS: SEVELAMER CARBONATE 800 MG TABLET PO SCH ×3 (09:19→18:06)
[2018-01-28 15:17] LABS: PROTHROMBIN TIME 10.3 sec (9.1-11.1)
[2018-01-28 20:00] VITALS: BP 106/73
[2018-01-29] VITALS (23 sets, daily range): BP systolic 102–135; BP diastolic 62–84
[2018-01-29] MEDS: TRAMADOL 50MG TABLET PO PRN (04:31)
[2018-01-29 05:58] LABS: HEMATOCRIT. 44.7 % (42.0-52.0); HEMOGLOBIN. 14.9 g/dL (14.0-18.0); MEAN CORPUSCULAR HEMOGLOBIN 31.5 pg (28.0-32.0); MEAN CORPUSCULAR VOLUME 94.7 fL (80.0-94.0); MEAN PLATELET VOLUME 8.1 fl (7.4-10.4); PLATELET 211 x1000/uL (130-400); RED BLOOD CELL COUNT 4.72 mill/uL (4.7-6.1); RED CELL DISTRIBUTION WIDTH 15.9 % (11.6-14.6)
[2018-01-29] MEDS: SEVELAMER CARBONATE 800 MG TABLET PO SCH (07:50)
[2018-01-29] MEDS ORDERED: LIDOCAINE HCL 1% 20ML VIAL (Pyxis) INJ ONE (08:39)
[2018-01-29] MEDS ORDERED: SODIUM BICARBONATE 4% (2.4MEQ) 5ML VIAL IV ONE (08:39)
[2018-01-29] MEDS ORDERED: IOHEXOL-300 100 ML BOTTLE ONE (08:39)
[2018-01-29] MEDS ORDERED: HEPARIN 1000 UNITS/ML 10ML ONE (08:39)
[2018-01-29] MEDS ORDERED: CEFAZOLIN 1000MG PREMIX 50 ML IV ONE ×2 (09:00→09:06)
[2018-01-29] MEDS ORDERED: FENTANYL CITRATE/PF 50MCG/ML 2ML VIAL ONE (09:06)
[2018-01-29] MEDS ORDERED: HEPARIN 5000 UNITS/ML VIAL IV ONE (09:30)
[2018-01-29] MEDS ORDERED: FENTANYL CITRATE/PF 50MCG/ML 2ML VIAL IV ONE (10:00)
[2018-01-29 18:56] LABS: PLATELET ESTIMATE NORMAL
== END 2018-01-29 13:10 | disposition home or self-care (01) | DRG 252 ==
LOC: ENRESERV 01-27 07:26 → ER 01-27 07:46 → 6EST 01-27 08:17
PROVIDERS: ADMIT Internal Medicine Nephrology; ATTEND Internal Medicine Nephrology
PROC: 05HN33Z Insertion of Infusion Device into Left Internal Jugular Vein, Percutaneous Approach (ICD-10-PCS; 2018-01-27)
PROC: B5141ZA Fluoroscopy of Left Jugular Veins using Low Osmolar Contrast, Guidance (ICD-10-PCS; 2018-01-27)
PROC: B544ZZA Ultrasonography of Left Jugular Veins, Guidance (ICD-10-PCS; 2018-01-27)
PROC: 5A1D70Z Performance of Urinary Filtration, Intermittent, Less than 6 Hours Per Day (ICD-10-PCS; 2018-01-27)
PROC: 5A1D70Z Performance of Urinary Filtration, Intermittent, Less than 6 Hours Per Day (ICD-10-PCS; 2018-01-28)
PROC: B5181ZZ Fluoroscopy of Superior Vena Cava using Low Osmolar Contrast (ICD-10-PCS; principal; 2018-01-29)
PROC: 03C83ZZ Extirpation of Matter from Left Brachial Artery, Percutaneous Approach (ICD-10-PCS; 2018-01-29)
PROC: 03783ZZ Dilation of Left Brachial Artery, Percutaneous Approach (ICD-10-PCS; 2018-01-29)
DX: T82.510A Breakdown (mechanical) of surgically created arteriovenous fistula, initial encounter (principal); N18.6 End stage renal disease; E87.3 Alkalosis; I12.0 Hypertensive chronic kidney disease with stage 5 chronic kidney disease or end stage renal disease; N11.9 Chronic tubulo-interstitial nephritis, unspecified; N25.81 Secondary hyperparathyroidism of renal origin; N13.9 Obstructive and reflux uropathy, unspecified; D64.9 Anemia, unspecified; E83.39 Other disorders of phosphorus metabolism; E86.9 Volume depletion, unspecified; E87.5 Hyperkalemia; F17.210 Nicotine dependence, cigarettes, uncomplicated; K21.9 Gastro-esophageal reflux disease without esophagitis; E89.2 Postprocedural hypoparathyroidism; M19.90 Unspecified osteoarthritis, unspecified site; E86.0 Dehydration; M1A.9XX1 Chronic gout, unspecified, with tophus (tophi); N25.0 Renal osteodystrophy; Y71.2 Prosthetic and other implants, materials and accessory cardiovascular devices associated with adverse incidents; Z91.15 Patient's noncompliance with renal dialysis; Z99.2 Dependence on renal dialysis; Z79.899 Other long term (current) drug therapy; Y92.89 Other specified places as the place of occurrence of the external cause; Z91.041 Radiographic dye allergy status
CPT/HCPCS: 36415; 36556; 36905; 76937; 77001; 80048; 80053; 84100; 85025; 85027; 85610; 86850; 86900; 99152; 99153; 99285; C1725; C1752; C1766; C1769; C2630; J0690; J1642; J1644; J3010; J3490; J7030; Q9967

== ENCOUNTER 2018-04-23 02:47 | Inpatient (IN) | payer MEDICARE, MEDICAID ==
[~2018-04-23] VITALS: Ht 180.3 cm; Wt 76.9 kg
[2018-04-23 03:34] LABS: BASOPHILS % 1.2 % (0.0-2.0); EOSINOPHILS % 0.8 % (0.0-5.0); HEMATOCRIT. 41.6 % (42.0-52.0); HEMOGLOBIN. 13.8 g/dL (14.0-18.0); LYMPHOCYTES % 9.3 % (20.0-50.0); MEAN CORPUSCULAR HEMOGLOBIN 29.6 pg (28.0-32.0); MEAN CORPUSCULAR VOLUME 89.1 fL (80.0-94.0); MEAN PLATELET VOLUME 7.4 fl (7.4-10.4); MONOCYTES % 9.6 % (2.0-8.0); NEUTROPHILS % 79.1 % (40.0-76.0); PLATELET 416 x1000/uL (130-400); RED BLOOD CELL COUNT 4.67 mill/uL (4.7-6.1); RED CELL DISTRIBUTION WIDTH 17.7 % (11.6-14.6)
[2018-04-23 03:38] LABS: CHLORIDE 86 mEq/L (98-107)
[2018-04-23 03:40] LABS: PARTIAL THROMBOPLASTIN TIME 29.5 sec (23.4-31.0); PROTHROMBIN TIME 10.4 sec (9.1-11.1)
[2018-04-23] MEDS ORDERED: ONDANSETRON HCL 4MG/2ML INJ IV ONE (04:30)
[2018-04-23] MEDS ORDERED: FENTANYL CITRATE/PF 50MCG/ML 2ML VIAL IV ONE (04:30)
[2018-04-23] MEDS ORDERED: SODIUM POLYSTYRENE SULFONATE 15 G/60 ML BOT PO ONE (04:30)
[2018-04-23] MEDS ORDERED: ENOXAPARIN 40MG/0.4ML SYR SUBCUT SCH (06:00)
[2018-04-23] MEDS ORDERED: ACETAMINOPHEN 325MG TABLET PO PRN (06:00)
[2018-04-23] MEDS ORDERED: HYDROCODONE/ACETAMINOPHEN 5/325MG TABLET PO PRN (06:00)
[2018-04-23] MEDS ORDERED: DOCUSATE SODIUM 100MG CAPSULE PO PRN (06:00)
[2018-04-23] MEDS ORDERED: LORAZEPAM 2MG/ML CPJ IV PRN (06:00)
[2018-04-23] MEDS ORDERED: NA PHOS,M-B/NA PHOS,DI-BA ENEMA 118ML PR PRN (06:00)
[2018-04-23] MEDS ORDERED: ONDANSETRON HCL 4MG/2ML INJ IV PRN (06:00)
[2018-04-23] MEDS ORDERED: HYDROMORPHONE HCL/PF 2MG/ML CPJ IV PRN (06:00)
[2018-04-23] MEDS ORDERED: IPRATROPIUM/ALBUTEROL 0.5-3(2.5)MG/3ML NEB INH PRN (06:00)
[2018-04-23] MEDS ORDERED: DIPHENHYDRAMINE 50MG/ML VIAL IV PRN (06:00)
[2018-04-23] MEDS ORDERED: MAGNESIUM/ALUMINUM HYDROXIDE/SIMETHICONE 30ML UDC PO PRN (06:00)
[2018-04-23] MEDS ORDERED: CLONIDINE 0.1MG TABLET PO PRN (06:00)
[2018-04-23 06:44] LABS: CHLORIDE 86 mEq/L (98-107)
[2018-04-23 07:45] VITALS: BP 90/48
[2018-04-23] MEDS: ENOXAPARIN 30MG/0.3ML SYR SUBCUT SCH (09:00)
[2018-04-23] MEDS ORDERED: LIDOCAINE HCL 1% 20ML VIAL (Pyxis) INJ ONE (09:08)
[2018-04-23] MEDS: FOLIC ACID/VITAMIN B COMP W-C TABLET PO SCH (11:50)
[2018-04-23 12:00] VITALS: BP 92/48
[2018-04-23] MEDS ORDERED: SEVELAMER CARBONATE 800 MG TABLET PO SCH (12:40)
[2018-04-23] MEDS ORDERED: HEPARIN SODIUM 1,000 UNIT/1ML VIAL IV SCH (13:45)
[2018-04-23 16:00] VITALS: BP 82/55
[2018-04-23 20:00] VITALS: BP 97/64
[2018-04-23] MEDS: SEVELAMER CARBONATE 800 MG TABLET PO SCH (20:14)
[2018-04-23] MEDS: CINACALCET HCL 60MG TABLET PO SCH (20:14)
[2018-04-23] MEDS: CALCIUM CARBONATE 500MG TABLET CHEW PO SCH (20:58)
[2018-04-24] VITALS: BP 92/56
[2018-04-24 04:00] VITALS: BP 95/67
[2018-04-24 07:35] LABS: BASOPHILS % 0.9 % (0.0-2.0); EOSINOPHILS % 1.4 % (0.0-5.0); HEMATOCRIT. 40.9 % (42.0-52.0); HEMOGLOBIN. 13.4 g/dL (14.0-18.0); LYMPHOCYTES % 14.9 % (20.0-50.0); MEAN CORPUSCULAR HEMOGLOBIN 29.3 pg (28.0-32.0); MEAN CORPUSCULAR VOLUME 89.5 fL (80.0-94.0); MEAN PLATELET VOLUME 7.7 fl (7.4-10.4); NEUTROPHILS % 69.8 % (40.0-76.0); PLATELET 324 x1000/uL (130-400); RED BLOOD CELL COUNT 4.57 mill/uL (4.7-6.1); RED CELL DISTRIBUTION WIDTH 17.9 % (11.6-14.6)
[2018-04-24] MEDS: CALCIUM CARBONATE 500MG TABLET CHEW PO SCH (07:40)
[2018-04-24] MEDS: SEVELAMER CARBONATE 800 MG TABLET PO SCH (07:40)
[2018-04-24 07:43] VITALS: BP 102/64
[2018-04-24 07:48] LABS: CHLORIDE 96 mEq/L (98-107)
[2018-04-24 07:59] LABS: LDL CHOLESTEROL 57 mg/dL (5-100)
[2018-04-24 08:01] LABS: HDL CHOLESTEROL 44 mg/dL (40-59); T4 FREE 0.96 ng/dL (0.76-1.46)
[2018-04-24 08:24] VITALS: BP 102/64
[2018-04-24] MEDS: FOLIC ACID/VITAMIN B COMP W-C TABLET PO SCH (08:58)
[2018-04-24] MEDS: CINACALCET HCL 60MG TABLET PO SCH (08:58)
[2018-04-24] MEDS: ENOXAPARIN 30MG/0.3ML SYR SUBCUT SCH (08:58)
== END 2018-04-24 08:55 | disposition home or self-care (01) | DRG 314 ==
LOC: ER 02:47 → 8WST 04:20 → EDBEDREQ 04:36 → EDBEDREQTM 04:36 → ENRESERV 04:44
PROVIDERS: ADMIT Internal Medicine; ATTEND Internal Medicine
PROC: 02HV33Z Insertion of Infusion Device into Superior Vena Cava, Percutaneous Approach (ICD-10-PCS; principal; 2018-04-23)
PROC: B5181ZA Fluoroscopy of Superior Vena Cava using Low Osmolar Contrast, Guidance (ICD-10-PCS; 2018-04-23)
PROC: B548ZZA Ultrasonography of Superior Vena Cava, Guidance (ICD-10-PCS; 2018-04-23)
PROC: 5A1D70Z Performance of Urinary Filtration, Intermittent, Less than 6 Hours Per Day (ICD-10-PCS; 2018-04-23)
DX: T82.868A Thrombosis due to vascular prosthetic devices, implants and grafts, initial encounter (principal); N18.6 End stage renal disease; E46 Unspecified protein-calorie malnutrition; I12.0 Hypertensive chronic kidney disease with stage 5 chronic kidney disease or end stage renal disease; N11.9 Chronic tubulo-interstitial nephritis, unspecified; N25.81 Secondary hyperparathyroidism of renal origin; D64.9 Anemia, unspecified; M25.562 Pain in left knee; E87.5 Hyperkalemia; F12.90 Cannabis use, unspecified, uncomplicated; Y84.1 Kidney dialysis as the cause of abnormal reaction of the patient, or of later complication, without mention of misadventure at the time of the procedure; K21.9 Gastro-esophageal reflux disease without esophagitis; N25.0 Renal osteodystrophy; M10.9 Gout, unspecified; N13.9 Obstructive and reflux uropathy, unspecified; Z99.2 Dependence on renal dialysis; Y92.89 Other specified places as the place of occurrence of the external cause; Z68.23 Body mass index [BMI] 23.0-23.9, adult
CPT/HCPCS: 36415; 36556; 76937; 77001; 80048; 80061; 83735; 84100; 84439; 84443; 84484; 86850; 86900; 93005; 93306; 93971; 96374; 96375; 99285; C1752; J1170; J1642; J1644; J2405; J3010; J3490

== ENCOUNTER 2018-04-25 17:07 | Inpatient (IN) | payer MEDICARE, MEDICAID ==
[~2018-04-25] VITALS: Ht 180.3 cm; Wt 57.6 kg
[2018-04-25 18:48] LABS: BASOPHILS % 0.6 % (0.0-2.0); EOSINOPHILS % 0.9 % (0.0-5.0); HEMATOCRIT. 40.2 % (42.0-52.0); HEMOGLOBIN. 13.4 g/dL (14.0-18.0); LYMPHOCYTES % 9.1 % (20.0-50.0); MEAN CORPUSCULAR HEMOGLOBIN 29.4 pg (28.0-32.0); MEAN CORPUSCULAR VOLUME 88.1 fL (80.0-94.0); MEAN PLATELET VOLUME 7.5 fl (7.4-10.4); MONOCYTES % 9.7 % (2.0-8.0); NEUTROPHILS % 79.7 % (40.0-76.0); PLATELET 296 x1000/uL (130-400); RED BLOOD CELL COUNT 4.57 mill/uL (4.7-6.1); RED CELL DISTRIBUTION WIDTH 17.7 % (11.6-14.6)
[2018-04-25 18:56] LABS: INR 1.1; PARTIAL THROMBOPLASTIN TIME 30.4 sec (23.4-31.0); PROTHROMBIN TIME 10.8 sec (9.1-11.1)
[2018-04-25 19:06] LABS: PHOSPHORUS 8.6 mg/dL (2.5-4.9)
[2018-04-25] MEDS ORDERED: DOCUSATE SODIUM 100MG CAPSULE PO PRN (20:45)
[2018-04-25] MEDS ORDERED: HYDROCODONE/APAP 7.5/325MG 1 TAB TABLET PO PRN (20:45)
[2018-04-25] MEDS ORDERED: DIPHENHYDRAMINE 50MG/ML VIAL IV PRN (20:45)
[2018-04-25] MEDS ORDERED: CLONIDINE 0.1MG TABLET PO PRN (20:45)
[2018-04-25] MEDS ORDERED: ZOLPIDEM TARTRATE 5MG TABLET PO PRN (20:45)
[2018-04-25] MEDS ORDERED: ACETAMINOPHEN 325MG TABLET PO PRN (20:45)
[2018-04-25] MEDS ORDERED: ONDANSETRON HCL 4MG/2ML INJ IV PRN (20:45)
[2018-04-25 22:30] VITALS: BP 106/74
[2018-04-26] VITALS: BP 111/55
[2018-04-26 04:00] VITALS: BP 119/61
[2018-04-26] MEDS: SODIUM CHLORIDE 0.9% INJ 3ML FLUSH IVF SCH ×2 (06:07→13:47)
[2018-04-26 06:42] LABS: BASOPHILS % 0.5 % (0.0-2.0); EOSINOPHILS % 1.3 % (0.0-5.0); HEMATOCRIT. 37.7 % (42.0-52.0); HEMOGLOBIN. 12.3 g/dL (14.0-18.0); LYMPHOCYTES % 12.3 % (20.0-50.0); MEAN CORPUSCULAR HEMOGLOBIN 29.2 pg (28.0-32.0); MEAN CORPUSCULAR VOLUME 89.1 fL (80.0-94.0); MEAN PLATELET VOLUME 7.7 fl (7.4-10.4); MONOCYTES % 11.8 % (2.0-8.0); NEUTROPHILS % 74.1 % (40.0-76.0); PLATELET 304 x1000/uL (130-400); RED BLOOD CELL COUNT 4.23 mill/uL (4.7-6.1); RED CELL DISTRIBUTION WIDTH 18.5 % (11.6-14.6)
[2018-04-26] MEDS: SEVELAMER CARBONATE 800 MG TABLET PO SCH ×2 (08:01→13:47)
[2018-04-26 08:13] VITALS: BP 122/81
[2018-04-26 10:49] LABS: PHOSPHORUS 8.4 mg/dL (2.5-4.9)
[2018-04-26 12:20] VITALS: BP 109/53
[2018-04-26 16:14] VITALS: BP 109/53
== END 2018-04-26 16:59 | disposition home or self-care (01) | DRG 314 ==
LOC: EDBEDREQTM 18:18 → EDBEDREQ 18:18 → ENRESERV 20:00 → ER 21:09 → 8WST 22:00
PROVIDERS: ADMIT Internal Medicine Nephrology; ATTEND Internal Medicine Nephrology
PROC: 5A1D70Z Performance of Urinary Filtration, Intermittent, Less than 6 Hours Per Day (ICD-10-PCS; principal; 2018-04-25)
DX: T82.838A Hemorrhage due to vascular prosthetic devices, implants and grafts, initial encounter (principal); N18.6 End stage renal disease; I12.0 Hypertensive chronic kidney disease with stage 5 chronic kidney disease or end stage renal disease; N11.9 Chronic tubulo-interstitial nephritis, unspecified; N25.81 Secondary hyperparathyroidism of renal origin; Z79.899 Other long term (current) drug therapy; I95.9 Hypotension, unspecified; D63.1 Anemia in chronic kidney disease; Y83.8 Other surgical procedures as the cause of abnormal reaction of the patient, or of later complication, without mention of misadventure at the time of the procedure; F17.210 Nicotine dependence, cigarettes, uncomplicated; K21.9 Gastro-esophageal reflux disease without esophagitis; M1A.9XX1 Chronic gout, unspecified, with tophus (tophi); N13.729 Vesicoureteral-reflux with reflux nephropathy without hydroureter, unspecified; N25.0 Renal osteodystrophy; Z91.19 Patient's noncompliance with other medical treatment and regimen; Z99.2 Dependence on renal dialysis; Y92.89 Other specified places as the place of occurrence of the external cause
CPT/HCPCS: 36415; 71045; 80048; 83735; 84100; 86850; 86900; 93005; 99285

== ENCOUNTER 2018-06-05 04:26 | Emergency (ER) | payer MEDICARE, MEDICAID ==
[2018-06-05] VITALS (27 sets, daily range): BP systolic 100–118; BP diastolic 62–86
[~2018-06-05] VITALS: Ht 180.3 cm; Wt 58.5 kg
[2018-06-05] MEDS ORDERED: ACETAMINOPHEN 325MG TABLET PO ONE (06:45)
[2018-06-05 07:10] LABS: BASOPHILS % 1.4 % (0.0-2.0); HEMATOCRIT. 41.1 % (42.0-52.0); HEMOGLOBIN. 13.7 g/dL (14.0-18.0); LYMPHOCYTES % 14.8 % (20.0-50.0); MEAN CORPUSCULAR HEMOGLOBIN 30.8 pg (28.0-32.0); MEAN CORPUSCULAR VOLUME 92.6 fL (80.0-94.0); MEAN PLATELET VOLUME 7.5 fl (7.4-10.4); MONOCYTES % 13.1 % (2.0-8.0); NEUTROPHILS % 68.7 % (40.0-76.0); PLATELET 350 x1000/uL (130-400); RED BLOOD CELL COUNT 4.44 mill/uL (4.7-6.1); RED CELL DISTRIBUTION WIDTH 20.6 % (11.6-14.6)
[2018-06-05 07:15] LABS: CHLORIDE 85 mEq/L (98-107)
[2018-06-05 07:27] LABS: INR 1.1; PROTHROMBIN TIME 10.7 sec (9.1-11.1)
[2018-06-05] MEDS ORDERED: CEFAZOLIN 1000MG PREMIX 50 ML IV NR (09:15)
[2018-06-05] MEDS ORDERED: SODIUM BICARBONATE 4% (2.4MEQ) 5ML VIAL IV ONE (09:27)
[2018-06-05] MEDS ORDERED: CEFAZOLIN 1000MG PREMIX 50 ML IV ONE (09:27)
[2018-06-05] MEDS ORDERED: LIDOCAINE HCL 1% 20ML VIAL (Pyxis) INJ ONE ×2 (09:27→11:45)
[2018-06-05] MEDS ORDERED: FENTANYL CITRATE/PF 50MCG/ML 2ML VIAL ONE (09:28)
[2018-06-05] MEDS ORDERED: IOHEXOL-300 100 ML BOTTLE ONE ×2 (09:28→11:29)
[2018-06-05] MEDS ORDERED: HEPARIN 1000 UNITS/ML 10ML ONE (09:28)
[2018-06-05] MEDS ORDERED: MIDAZOLAM HCL 2 MG/2 ML VIAL ONE (10:45)
[2018-06-05] MEDS ORDERED: HEPARIN 5000 UNITS/ML VIAL IV ONE (11:00)
[2018-06-05] MEDS ORDERED: HEPARIN 5000 UNITS/ML VIAL IV NR (11:30)
[2018-06-05] MEDS ORDERED: FENTANYL CITRATE/PF 50MCG/ML 2ML VIAL IV ONE (12:00)
[2018-06-05] MEDS ORDERED: MIDAZOLAM HCL 2 MG/2 ML VIAL IV ONE (12:00)
[2018-06-05] MEDS ORDERED: HYDROCODONE/ACETAMINOPHEN 5/325MG TABLET PO ONE (13:15)
== END 2018-06-05 15:15 | disposition home or self-care (01) ==
LOC: ER 04:26 → EDBD 04:26 → EDBEDREQ 13:29 → EDBEDREQTM 13:29 → ER 15:15 → CANBEDREQ 17:49
DX: T82.41XA Breakdown (mechanical) of vascular dialysis catheter, initial encounter (principal); I12.0 Hypertensive chronic kidney disease with stage 5 chronic kidney disease or end stage renal disease; N18.6 End stage renal disease; G89.29 Other chronic pain; F12.10 Cannabis abuse, uncomplicated; Z99.2 Dependence on renal dialysis; Z79.899 Other long term (current) drug therapy
CPT/HCPCS: 36415; 36558; 36905; 76937; 77001; 80053; 85025; 85610; 96365; 96375; 99284; C1725; C1750; C1766; C1769; C2630; J0690; J1642; J1644; J2250; J3010; J3490; J7050; Q9967; 99152; 99153; G0500

== ENCOUNTER 2018-08-18 11:57 | Inpatient (IN) | payer MEDICARE, MEDICAID ==
[~2018-08-18] VITALS: Ht 180.3 cm; Wt 60.3 kg
[2018-08-18 14:21] LABS: BASOPHILS % 0.7 % (0.0-2.0); EOSINOPHILS % 0.9 % (0.0-5.0); HEMATOCRIT. 39.2 % (42.0-52.0); HEMOGLOBIN. 12.9 g/dL (14.0-18.0); LYMPHOCYTES % 16.5 % (20.0-50.0); MEAN CORPUSCULAR HEMOGLOBIN 29.9 pg (28.0-32.0); MEAN CORPUSCULAR VOLUME 90.9 fL (80.0-94.0); MONOCYTES % 10.1 % (2.0-8.0); NEUTROPHILS % 71.8 % (40.0-76.0); PLATELET 371 x1000/uL (130-400); RED BLOOD CELL COUNT 4.31 mill/uL (4.7-6.1)
[2018-08-18 14:28] LABS: CHLORIDE 88 mEq/L (98-107)
[2018-08-18 14:29] LABS: PROTHROMBIN TIME 10.7 sec (9.6-11.0)
[2018-08-18] MEDS ORDERED: DEXTROSE 50% WATER 50ML SYRINGE IV ONE ×2 (14:45→18:15)
[2018-08-18] MEDS ORDERED: CALCIUM GLUCONATE 100MG/ML 10ML VIAL IV ONE (14:45)
[2018-08-18] MEDS ORDERED: ALBUTEROL (0.083%) 2.5MG/3ML NEB HHN ONE (14:45)
[2018-08-18] MEDS ORDERED: INSULIN REGULAR (HUMULIN R) 300UNITS/3ML IV ONE (15:00)
[2018-08-18] MEDS ORDERED: MAGNESIUM/ALUMINUM HYDROXIDE/SIMETHICONE 30ML UDC PO PRN (16:45)
[2018-08-18] MEDS ORDERED: DIPHENHYDRAMINE 50MG/ML VIAL IV PRN (16:45)
[2018-08-18] MEDS ORDERED: LACTULOSE 20G/30ML UDC PO NR (16:45)
[2018-08-18] MEDS ORDERED: GUAIFENESIN 200MG/10ML SUGAR FREE UDC PO PRN (16:45)
[2018-08-18] MEDS ORDERED: SODIUM POLYSTYRENE SULFONATE 15 G/60 ML BOT PO NR (16:45)
[2018-08-18] MEDS ORDERED: CLONIDINE 0.1MG TABLET PO PRN (16:45)
[2018-08-18] MEDS ORDERED: NA PHOS,M-B/NA PHOS,DI-BA ENEMA 118ML PR PRN (16:45)
[2018-08-18] MEDS ORDERED: ACETAMINOPHEN 650MG/20.3ML UDC GT PRN (16:45)
[2018-08-18] MEDS ORDERED: ENOXAPARIN 40MG/0.4ML SYR SUBCUT SCH (16:45)
[2018-08-18] MEDS ORDERED: ACETAMINOPHEN 325MG TABLET PO PRN (16:45)
[2018-08-18] MEDS ORDERED: HYDROCODONE/ACETAMINOPHEN 5/325MG TABLET PO PRN (16:45)
[2018-08-18] MEDS ORDERED: ONDANSETRON HCL 4MG/2ML INJ IV PRN (16:45)
[2018-08-18] MEDS ORDERED: DOCUSATE SODIUM 100MG CAPSULE PO PRN (16:45)
[2018-08-18] MEDS ORDERED: IPRATROPIUM/ALBUTEROL 0.5-3(2.5)MG/3ML NEB INH PRN (16:45)
[2018-08-18] MEDS ORDERED: ACETAMINOPHEN 650MG SUPP PR PRN (16:45)
[2018-08-18] MEDS ORDERED: ENOXAPARIN 30MG/0.3ML SYR SUBCUT NR (19:00)
[2018-08-18 21:00] VITALS: BP 120/87
[2018-08-18 22:00] VITALS: BP 120/87
[2018-08-18] MEDS: SODIUM CHLORIDE 0.9% INJ 3ML FLUSH IVF SCH (22:00)
[2018-08-19] VITALS: BP 110/72
[2018-08-19 00:19] LABS: CREATINE KINASE 72 IU/L (39-308)
[2018-08-19 00:20] LABS: CREATINE KINASE MB FRACTION < 1.0 ng/mL (0.5-3.6)
[2018-08-19 04:00] VITALS: BP 120/76
[2018-08-19 06:01] LABS: BASOPHILS % 0.9 % (0.0-2.0); EOSINOPHILS % 1.5 % (0.0-5.0); HEMOGLOBIN. 12.1 g/dL (14.0-18.0); LYMPHOCYTES % 18.3 % (20.0-50.0); MEAN CORPUSCULAR HEMOGLOBIN 30.6 pg (28.0-32.0); MEAN PLATELET VOLUME 7.5 fl (7.4-10.4); NEUTROPHILS % 66.3 % (40.0-76.0); PLATELET 385 x1000/uL (130-400); RED BLOOD CELL COUNT 3.95 mill/uL (4.7-6.1); RED CELL DISTRIBUTION WIDTH 16.9 % (11.6-14.6)
[2018-08-19 06:08] LABS: CHLORIDE 91 mEq/L (98-107)
[2018-08-19 06:25] LABS: LDL CHOLESTEROL 60 mg/dL (5-100)
[2018-08-19 06:27] LABS: CREATINE KINASE 69 IU/L (39-308)
[2018-08-19 06:28] LABS: HDL CHOLESTEROL 35 mg/dL (40-59)
[2018-08-19 06:31] LABS: CREATINE KINASE MB FRACTION < 1.0 ng/mL (0.5-3.6)
[2018-08-19] MEDS: SODIUM CHLORIDE 0.9% INJ 3ML FLUSH IVF SCH (06:42)
[2018-08-19 08:31] VITALS: BP 122/80
[2018-08-19] MEDS ORDERED: ALTEPLASE 2MG/VIAL ITC NR ×2 (10:00)
[2018-08-19 12:02] VITALS: BP 114/72
[2018-08-19] MEDS ORDERED: MEDICATION NOT ON FORMULARY EA (Hydralazine Hcl 10 MG) PO SCH (12:15)
[2018-08-19] MEDS ORDERED: SEVELAMER CARBONATE PO SCH (13:10)
[2018-08-19] MEDS ORDERED: CALCIUM CARBONATE 1000 MG PO SCH (13:10)
[2018-08-19] MEDS ORDERED: SEVELAMER CARBONATE 800 MG TABLET PO SCH (13:10)
[2018-08-19] MEDS ORDERED: HEPARIN SODIUM 1,000 UNIT/1ML VIAL IV SCH (14:45)
[2018-08-19 16:16] VITALS: BP 114/73
[2018-08-19] MEDS ORDERED: ENOXAPARIN 30MG/0.3ML SYR SUBCUT SCH (18:00)
== END 2018-08-19 16:42 | disposition left against medical advice (07) | DRG 314 ==
LOC: ER 11:57 → 7WST 15:29 → EDBEDREQ 16:00 → ENRESERV 19:55
PROVIDERS: ADMIT Family Medicine; ATTEND Family Medicine
PROC: 5A1D70Z Performance of Urinary Filtration, Intermittent, Less than 6 Hours Per Day (ICD-10-PCS; principal; 2018-08-18)
DX: T82.41XA Breakdown (mechanical) of vascular dialysis catheter, initial encounter (principal); N18.6 End stage renal disease; I12.0 Hypertensive chronic kidney disease with stage 5 chronic kidney disease or end stage renal disease; N25.81 Secondary hyperparathyroidism of renal origin; E46 Unspecified protein-calorie malnutrition; Z68.1 Body mass index [BMI] 19.9 or less, adult; T82.49XA Other complication of vascular dialysis catheter, initial encounter; E87.5 Hyperkalemia; M10.9 Gout, unspecified; Y71.2 Prosthetic and other implants, materials and accessory cardiovascular devices associated with adverse incidents; Z53.21 Procedure and treatment not carried out due to patient leaving prior to being seen by health care provider; E83.39 Other disorders of phosphorus metabolism; N13.729 Vesicoureteral-reflux with reflux nephropathy without hydroureter, unspecified; I95.3 Hypotension of hemodialysis; Z99.2 Dependence on renal dialysis; Y92.89 Other specified places as the place of occurrence of the external cause
CPT/HCPCS: 36415; 80048; 80061; 82550; 82553; 84484; 93005; 94640; 96374; 96375; 99285; J0610; J1644; J1650; J1815; J2997; J7611

== ENCOUNTER 2023-01-06 08:18 | Emergency (ER) | payer MEDICARE, MEDICAID ==
[~2023-01-06] VITALS: Ht 177.8 cm; Wt 62.0 kg
[2023-01-06 08:23] VITALS: O2SAT 100
[2023-01-06] MEDS ORDERED: ACETAMINOPHEN 325MG TABLET PO ONE (09:15)
[2023-01-06 09:56] LABS: CHLORIDE 98 mEq/L (98-107); INDEX HEMOLYSI 1 (1-3); INDEX ICTERIC 1 (1-4); INDEX LIPEMIC 1 (1-3); POTASSIUM 4.4 mEq/L (3.5-5.1); SODIUM 136 mEq/L (136-145)
[2023-01-06 10:09] LABS: ALANINE AMINOTRANSFERASE 14 IU/L (13-61); ALBUMIN 3.6 g/dL (3.4-5.0); ASPARTATE AMINOTRANSFERASE 16 IU/L (15-37); BILIRUBIN TOTAL 0.9 mg/dL (0.1-1.0); CARBON DIOXIDE 31 mEq/L (21-32); GLUCOSE 74 mg/dL (70-105); PROTEIN TOTAL 8.1 g/dL (6.0-8.3); UREA NITROGEN BLOOD 32 mg/dL (7-21)
[2023-01-06 10:21] LABS: CREATININE 8.2 mg/dL (0.6-1.3)
[2023-01-06 12:44] LABS: BASOPHILS % 0.5 % (0.0-2.0); EOSINOPHILS % 2.4 % (0.0-5.0); HEMOGLOBIN. 13.7 g/dL (14.0-18.0); LYMPHOCYTES % 26.2 % (20.0-50.0); MEAN CORPUSCULAR HEMOGLOBIN 28.6 pg (28.0-32.0); MEAN CORPUSCULAR HGB CONC 32.7 g/dL (31.0-37.0); MEAN CORPUSCULAR VOLUME 87.5 fL (80.0-94.0); MEAN PLATELET VOLUME 8.2 fl (7.4-10.4); NEUTROPHILS % 60.9 % (40.0-76.0); PLATELET 327 x1000/uL (130-400); RED CELL DISTRIBUTION WIDTH 21.2 % (11.6-14.6)
[2023-01-06 12:47] LABS: ERYTHROCYTE SEDIMENTATION RATE 13 mm/hr (0-15)
[2023-01-06] MEDS ORDERED: BACITRACIN ZINC OINT UDPKT TOP ONE (14:00)
[2023-01-06] MEDS ORDERED: LIDOCAINE HCL/PF 1% 10 MG/ML 5ML VIAL INFIL ONE (14:00)
[2023-01-06] MEDS ORDERED: CEPH500C2 MT (14:32)
[2023-01-06 16:16] VITALS: BP 132/82; PULSE 80; RESP 16; TEMP 97.8
== END 2023-01-06 15:30 | disposition left against medical advice (07) ==
LOC: ER 08:18
DX: R22.31 Localized swelling, mass and lump, right upper limb (principal); I11.0 Hypertensive heart disease with heart failure; I50.9 Heart failure, unspecified; E11.9 Type 2 diabetes mellitus without complications; Z98.890 Other specified postprocedural states
CPT/HCPCS: 36415; 73140; 73220; 80053; 85025; 85651; 99285

== ENCOUNTER 2023-02-02 17:04 | Emergency (ER) | payer MEDICARE, MEDICAID ==
[~2023-02-02] VITALS: Ht 175.3 cm; Wt 75.0 kg
[~2023-02-02 17:04] MED LIST changes: +CEPH500C2 MT
[2023-02-02 17:20] VITALS: TEMP 99.7; O2SAT 95
[2023-02-02] MEDS ORDERED: VANCOMYCIN 1G PREMIX 200 ML IV SCH (18:45)
[2023-02-02] MEDS ORDERED: SODIUM CHLORIDE 0.9% 1,000 ML IV ONE (18:45)
[2023-02-02 19:35] LABS: EOSINOPHILS % 3.6 % (0.0-5.0); HEMOGLOBIN. 14.4 g/dL (14.0-18.0); MEAN CORPUSCULAR HEMOGLOBIN 30.1 pg (28.0-32.0); MEAN CORPUSCULAR HGB CONC 32.6 g/dL (31.0-37.0); MEAN CORPUSCULAR VOLUME 92.1 fL (80.0-94.0); MONOCYTES % 10.8 % (2.0-8.0); NEUTROPHILS % 55.6 % (40.0-76.0); PLATELET 282 x1000/uL (130-400); RED BLOOD CELL COUNT 4.78 mill/uL (4.7-6.1); RED CELL DISTRIBUTION WIDTH 23.5 % (11.6-14.6); WHITE BLOOD COUNT 4.3 x1000/uL (4.5-11.0)
[2023-02-02 19:39] LABS: ADD RBC MORPHOLOGY YES; DIFFERENTIAL COMMENT 1
[2023-02-02 19:40] LABS: PROTHROMBIN TIME 10.9 sec (9.6-11.0)
[2023-02-02 19:44] LABS: CHLORIDE 96 mEq/L (98-107); INDEX HEMOLYSI 1 (1-3); INDEX ICTERIC 1 (1-4); INDEX LIPEMIC 1 (1-3); POTASSIUM 4.4 mEq/L (3.5-5.1); SODIUM 138 mEq/L (136-145)
[2023-02-02 19:56] LABS: ALANINE AMINOTRANSFERASE 34 IU/L (13-61); ALBUMIN 3.9 g/dL (3.4-5.0); ASPARTATE AMINOTRANSFERASE 25 IU/L (15-37); BILIRUBIN TOTAL 0.9 mg/dL (0.1-1.0); CALCIUM 8.7 mg/dL (8.5-10.1); CARBON DIOXIDE 29 mEq/L (21-32); GLUCOSE 77 mg/dL (70-105); NT PRO B-TYPE NATRIURETIC PEP 6977 pg/mL (5-125); PROTEIN TOTAL 8.7 g/dL (6.0-8.3); UREA NITROGEN BLOOD 31 mg/dL (7-21)
[2023-02-02 20:00] LABS: CREATININE 7.9 mg/dL (0.6-1.3)
[2023-02-02 20:01] LABS: ANISOCYTOSIS 1+; PLATELET ESTIMATE NORMAL
[2023-02-02] MEDS ORDERED: PIPERACILLIN/TAZ 3.375G PREMIX 50 ML IV SCH (22:00)
[2023-02-03] MEDS ORDERED: VANCOMYCIN 1G PREMIX 200 ML IV NR (01:00)
[2023-02-03] MEDS ORDERED: PIPERACILLIN/TAZ 3.375G PREMIX 50 ML IV NR (01:00)
[2023-02-03 12:20] VITALS: BP 126/86; PULSE 96; RESP 15
== END 2023-02-03 22:00 | disposition left against medical advice (07) ==
LOC: ER 17:04
DX: M87.04 Idiopathic aseptic necrosis of hand and fingers (principal); I10 Essential (primary) hypertension; I11.0 Hypertensive heart disease with heart failure; I50.9 Heart failure, unspecified; F12.10 Cannabis abuse, uncomplicated; E11.9 Type 2 diabetes mellitus without complications
CPT/HCPCS: 99285; 74176; 71045; 80053; 83880; 83605; 85025; 85610; 86850; 86900; 86901; 87040; 36415; 73130; 93005; 96365; 96366; 96367; J7030; J2543; J3370

== ENCOUNTER 2023-12-27 11:50 | Emergency (ER) | payer MEDICARE, MEDICAID ==
[2023-12-27] VITALS (8 sets, daily range): BP systolic 129–140; BP diastolic 69–89; PULSE 78–90; RESP 18–20; TEMP 35.89176; O2SAT 94–100
[~2023-12-27] VITALS: Ht 180.3 cm; Wt 27470.7 kg
[~2023-12-27 11:50] MED LIST changes: +HYDR-2988 PO; -HYDR-4133 PO
[2023-12-27 12:43] LABS: BASOPHILS % 0.9 % (0.0-2.0); EOSINOPHILS % 3.3 % (0.0-5.0); HEMATOCRIT. 39.1 % (42.0-52.0); HEMOGLOBIN. 12.3 g/dL (14.0-18.0); LYMPHOCYTES % 23.6 % (20.0-50.0); MEAN CORPUSCULAR HEMOGLOBIN 28.1 pg (28.0-32.0); MEAN CORPUSCULAR HGB CONC 31.3 g/dL (31.0-37.0); MEAN CORPUSCULAR VOLUME 89.7 fL (80.0-94.0); MEAN PLATELET VOLUME 8.2 fl (7.4-10.4); MONOCYTES % 12.1 % (2.0-8.0); NEUTROPHILS % 60.1 % (40.0-76.0); PLATELET 228 x1000/uL (130-400); RED BLOOD CELL COUNT 4.36 mill/uL (4.7-6.1); RED CELL DISTRIBUTION WIDTH 17.2 % (11.6-14.6); WHITE BLOOD COUNT 4.1 x1000/uL (4.5-11.0)
[2023-12-27 12:50] LABS: POTASSIUM 4.9 mEq/L (3.5-5.1)
[2023-12-27 12:52] LABS: CALCIUM 9.5 mg/dL (8.7-10.4)
[2023-12-27 13:11] LABS: CREATININE 12.1 mg/dL (0.6-1.3)
[2023-12-27] MEDS ORDERED: LIDOCAINE HCL 1% 10 MG/ML 10ML VIAL ONE ×2 (13:29→14:10)
[2023-12-27] MEDS ORDERED: HEPARIN 1000 UNITS/ML 10ML ONE (13:30)
[2023-12-27] MEDS ORDERED: GUAIFENESIN 200MG/10ML SUGAR FREE UDC PO PRN (15:00)
[2023-12-27] MEDS ORDERED: ACETAMINOPHEN 325MG TABLET PO PRN ×2 (15:00)
[2023-12-27] MEDS ORDERED: MAGNESIUM/ALUMINUM HYDROXIDE/SIMETHICONE 30ML UDC PO PRN (15:00)
[2023-12-27] MEDS ORDERED: ONDANSETRON HCL 4MG/2ML INJ IV PRN (15:00)
[2023-12-27] MEDS ORDERED: IPRATROPIUM/ALBUTEROL 0.5-3(2.5)MG/3ML NEB HHN PRN (15:00)
[2023-12-27] MEDS ORDERED: CLONIDINE 0.1MG TABLET PO PRN (15:00)
[2023-12-27] MEDS ORDERED: DOCUSATE SODIUM 100MG CAPSULE PO PRN (15:00)
[2023-12-27 19:04] LABS: FOLIC ACID (FOLATE) SERUM > 20.00 ng/mL (>5.38); VITAMIN B12 SERUM 897 pg/mL (211-911)
[2023-12-27] MEDS ORDERED: FAMOTIDINE 20MG TABLET PO SCH (21:00)
[2023-12-28] MEDS ORDERED: ENOXAPARIN 40MG/0.4ML SYR SUBCUT SCH (09:00)
== END 2023-12-27 17:06 | disposition left against medical advice (07) ==
LOC: ER 11:50
DX: T82.49XA Other complication of vascular dialysis catheter, initial encounter (principal); E11.9 Type 2 diabetes mellitus without complications; I11.0 Hypertensive heart disease with heart failure; I50.9 Heart failure, unspecified; N28.9 Disorder of kidney and ureter, unspecified; Z20.822 Contact with and (suspected) exposure to COVID-19; Z98.890 Other specified postprocedural states
CPT/HCPCS: 36558; 80048; 82607; 82746; 85025; 85610; 36415; 77001; 99285; 87426; 71045; J1644; J3490; C1750; C1725; C1769

== ENCOUNTER 2024-09-25 16:03 | Inpatient (IN) | payer MEDICARE, MEDICAID ==
[~2024-09-25] VITALS: Ht 180.3 cm; Wt 62.6 kg
[2024-09-25] MEDS: INSULIN GLARGINE 100 UNITS/ML SUBCUT SCH (10:00)
[2024-09-25 16:52] LABS: BASOPHILS % 0.9 % (0.0-2.0); HEMATOCRIT. 43.9 % (42.0-52.0); HEMOGLOBIN. 14.8 g/dL (14.0-18.0); LYMPHOCYTES % 12.8 % (20.0-50.0); MEAN CORPUSCULAR HEMOGLOBIN 31.9 pg (28.0-32.0); MEAN CORPUSCULAR HGB CONC 33.6 g/dL (31.0-37.0); MEAN CORPUSCULAR VOLUME 94.7 fL (80.0-94.0); NEUTROPHILS % 74.3 % (40.0-76.0); PLATELET 214 x1000/uL (130-400); RED BLOOD CELL COUNT 4.64 mill/uL (4.7-6.1); RED CELL DISTRIBUTION WIDTH 14.5 % (11.6-14.6); WHITE BLOOD COUNT 6.1 x1000/uL (4.5-11.0)
[2024-09-25 17:00] LABS: CHLORIDE 96 mEq/L (98-107); POTASSIUM 5.5 mEq/L (3.5-5.1); SODIUM 139 mEq/L (136-145)
[2024-09-25 17:01] LABS: CALCIUM 9.6 mg/dL (8.7-10.4); CARBON DIOXIDE 32 mEq/L (21-32)
[2024-09-25 17:02] LABS: PROTHROMBIN TIME 10.9 sec (9.6-11.0)
[2024-09-25 17:06] LABS: GLUCOSE 68 mg/dL (70-105); UREA NITROGEN BLOOD 58 mg/dL (9-23)
[2024-09-25 17:07] LABS: TROPONIN I HIGH SENSITIVITY 25 ng/L (3.0-53)
[2024-09-25 17:11] LABS: CREATININE 11.6 mg/dL (0.6-1.3)
[2024-09-25] MEDS: CALCIUM CHLORIDE 1GM/10ML SYR IV NR (17:18)
[2024-09-25 17:20] VITALS: PULSE 111; RESP 12; O2SAT 95
[2024-09-25] MEDS: ALBUTEROL (0.083%) 2.5MG/3ML NEB HHN NR (17:20)
[2024-09-25] MEDS ORDERED: ASPIRIN 325MG EC TABLET PO NR (19:38)
[2024-09-25] MEDS ORDERED: MORPHINE SULFATE 2 MG/ML INJ (NOT FOR IM USE) IV PRN (19:45)
[2024-09-25] MEDS ORDERED: MAGNESIUM/ALUMINUM HYDROXIDE/SIMETHICONE 30ML UDC PO PRN (19:45)
[2024-09-25] MEDS ORDERED: ACETAMINOPHEN 325MG TABLET PO PRN (19:45)
[2024-09-25] MEDS ORDERED: IPRATROPIUM/ALBUTEROL 0.5-3(2.5)MG/3ML NEB HHN PRN (19:45)
[2024-09-25] MEDS ORDERED: ONDANSETRON HCL 4MG/2ML INJ IV PRN (19:45)
[2024-09-25] MEDS ORDERED: GUAIFENESIN 200MG/10ML SUGAR FREE UDC PO PRN (19:45)
[2024-09-25] MEDS ORDERED: CLONIDINE 0.1MG TABLET PO PRN (19:45)
[2024-09-25] MEDS ORDERED: DEXTROSE 50% WATER 50ML SYRINGE IV PRN (19:45)
[2024-09-25] MEDS ORDERED: NITROGLYCERIN 0.4MG TABLET SL SL PRN (19:45)
[2024-09-25] MEDS ORDERED: DOCUSATE SODIUM 100MG CAPSULE PO PRN (19:45)
[2024-09-25] MEDS: PIPERACILLIN/TAZO 3.375G/50ML 50 ML IV NR (20:00)
[2024-09-25] MEDS ORDERED: HYDROCODONE/ACETAMINOPHEN 5/325MG TABLET PO PRN (20:06)
[2024-09-25] MEDS: BLOOD SUGAR DIAGNOSTIC STRIP TEST SCH (21:00)
[2024-09-25] MEDS: INSULIN LISPRO 100 UNITS/ML SUBCUT SCH (21:00)
[2024-09-25] MEDS: ATORVASTATIN CALCIUM 40MG TABLET PO SCH (21:00)
[2024-09-25] MEDS: METOPROLOL TARTRATE 25MG TABLET PO SCH (21:00)
[2024-09-25] MEDS ORDERED: POLYMYXIN B SULFATE/TMP 10ML BOTTLE BOTHEYE SCH (21:00)
[2024-09-25] MEDS: HYDRALAZINE HCL 10MG TABLET PO SCH (22:00)
[2024-09-25] MEDS ORDERED: IOHEXOL-350 100 ML BOTTLE ONE (23:00)
[2024-09-26] VITALS (13 sets, daily range): BP systolic 92–124; BP diastolic 54–84; PULSE 74–106; RESP 16–18; TEMP 36.114–36.8; O2SAT 16–100
[2024-09-26 06:35] LABS: EOSINOPHILS % 1.8 % (0.0-5.0); HEMATOCRIT. 43.4 % (42.0-52.0); HEMOGLOBIN. 14.4 g/dL (14.0-18.0); LYMPHOCYTES % 14.4 % (20.0-50.0); MEAN CORPUSCULAR HEMOGLOBIN 31.7 pg (28.0-32.0); MEAN CORPUSCULAR HGB CONC 33.1 g/dL (31.0-37.0); MEAN CORPUSCULAR VOLUME 95.7 fL (80.0-94.0); MEAN PLATELET VOLUME 8.7 fl (7.4-10.4); MONOCYTES % 13.9 % (2.0-8.0); NEUTROPHILS % 68.9 % (40.0-76.0); PLATELET 225 x1000/uL (130-400); RED BLOOD CELL COUNT 4.53 mill/uL (4.7-6.1); RED CELL DISTRIBUTION WIDTH 14.6 % (11.6-14.6); WHITE BLOOD COUNT 5.5 x1000/uL (4.5-11.0)
[2024-09-26] MEDS: INSULIN LISPRO 100 UNITS/ML SUBCUT SCH (06:39)
[2024-09-26 06:42] LABS: CALCIUM 9.5 mg/dL (8.7-10.4)
[2024-09-26 06:46] LABS: CREATINE KINASE MB FRACTION 1.3 ng/mL (0.5-3.6)
[2024-09-26 06:49] LABS: T4 FREE 1.21 ng/dL (0.89-1.76); THYROID STIMULATING HORMONE 2.56 uIU/mL (0.55-4.78)
[2024-09-26 07:38] LABS: CREATININE 12.1 mg/dL (0.6-1.3)
[2024-09-26 07:41] LABS: POTASSIUM 6.3 mEq/L (3.5-5.1)
[2024-09-26] MEDS: ENOXAPARIN 30MG/0.3ML SYR SUBCUT SCH (09:00)
[2024-09-26] MEDS: SEVELAMER CARBONATE 800 MG TABLET PO SCH (10:34)
[2024-09-26] MEDS: ASPIRIN 81MG EC TABLET PO SCH (10:35)
[2024-09-26] MEDS: PIPERACILLIN/TAZO 3.375G/50ML 50 ML IV SCH (10:35)
[2024-09-26 12:58] LABS: PHOSPHORUS 3.9 mg/dL (2.5-4.9)
[2024-09-26 13:14] LABS: HEPATITIS B SURFACE ANTIGEN NEGATIVE (Negative)
[2024-09-26 13:35] LABS: HEPATITIS A AB IGM NEGATIVE (Negative)
[2024-09-26 13:36] LABS: HEPATITIS B CORE AB IGM NEGATIVE (Negative); HEPATITIS C AB NON REACTIVE (Neg) (Negative)
[2024-09-26] MEDS: ACETAMINOPHEN 325MG TABLET PO PRN (21:01)
[2024-09-27] VITALS: BP 100/55; PULSE 75; RESP 18; TEMP 36.4; O2SAT 96
[2024-09-27 00:57] VITALS: BP 122/77; PULSE 84; RESP 18; TEMP 36.114
[2024-09-27] MEDS: CALCITRIOL 0.25MCG CAPSULE PO SCH (09:00)
[2024-09-27] MEDS: SODIUM ZIRCONIUM CYCLOSILICATE 10GM/PACKET PO NR (14:26)
[2024-09-27] MEDS ORDERED: MORPHINE SULFATE 4 MG/ML INJ (FOR IV/IM USE) IV PRN (15:28)
[2024-09-28] VITALS (11 sets, daily range): BP systolic 108–163; BP diastolic 61–84; PULSE 80–103; RESP 17–22; TEMP 36.00288–36.6696; O2SAT 93–97
[2024-09-28] MEDS ORDERED: CARVEDILOL 3.125 MG TABLET PO SCH (21:00)
== END 2024-09-28 16:55 | DRG 193 ==
LOC: ER 16:03 → EDBEDREQ 19:26 → ENRESERV 20:04 → 5WST 20:21
PROVIDERS: ADMIT Internal Medicine; ATTEND Internal Medicine
PROC: 5A1D70Z Performance of Urinary Filtration, Intermittent, Less than 6 Hours Per Day (ICD-10-PCS; principal; 2024-09-26)
PROC: 5A1D70Z Performance of Urinary Filtration, Intermittent, Less than 6 Hours Per Day (ICD-10-PCS; 2024-09-28)
DX: J18.9 Pneumonia, unspecified organism (principal); N18.6 End stage renal disease; I50.32 Chronic diastolic (congestive) heart failure; I13.2 Hypertensive heart and chronic kidney disease with heart failure and with stage 5 chronic kidney disease, or end stage renal disease; N25.81 Secondary hyperparathyroidism of renal origin; E87.5 Hyperkalemia; I20.9 Angina pectoris, unspecified; R22.1 Localized swelling, mass and lump, neck; M54.2 Cervicalgia; I08.0 Rheumatic disorders of both mitral and aortic valves; H10.89 Other conjunctivitis; E11.649 Type 2 diabetes mellitus with hypoglycemia without coma; K21.9 Gastro-esophageal reflux disease without esophagitis; N25.0 Renal osteodystrophy; E11.22 Type 2 diabetes mellitus with diabetic chronic kidney disease; F17.200 Nicotine dependence, unspecified, uncomplicated; Z79.82 Long term (current) use of aspirin; Z79.4 Long term (current) use of insulin; Z79.899 Other long term (current) drug therapy; Z91.199 Patient's noncompliance with other medical treatment and regimen due to unspecified reason; Z99.2 Dependence on renal dialysis; M1A.9XX1 Chronic gout, unspecified, with tophus (tophi); N13.9 Obstructive and reflux uropathy, unspecified; M19.90 Unspecified osteoarthritis, unspecified site
CPT/HCPCS: 36415; 70496; 70498; 71045; 80048; 80061; 82550; 82553; 83036; 84100; 84439; 84443; 84484; 85025; 85379; 86705; 86709; 87340; 90935; 93005; 93306; 94070; 94640; 94664; 97162; 97166; 98960; 99285; J1650; J2543; J3490; Q9967

== ENCOUNTER 2024-12-12 13:48 | Inpatient (IN) | payer MEDICARE, MEDICAID ==
[~2024-12-12] VITALS: Ht 149.9 cm; Wt 60.9 kg
[2024-12-12 13:52] VITALS: O2SAT 96
[2024-12-12 14:42] VITALS: RESP 21
[2024-12-12] MEDS: SODIUM CHLORIDE 0.9% (SEPSIS BOLUS) IV ONE (14:52)
[2024-12-12] MEDS: CEFTRIAXONE 1GM/50ML 50 ML IV ONE (14:52)
[2024-12-12] MEDS: AZITHROMYCIN 500MG/250ML 250 ML IV ONE (15:32)
[2024-12-12 15:35] LABS: HEMATOCRIT. 44.9 % (42.0-52.0); HEMOGLOBIN. 14.8 g/dL (14.0-18.0); MEAN PLATELET VOLUME 8.0 fl (7.4-10.4); PLATELET 233 x1000/uL (130-400); RED BLOOD CELL COUNT 4.85 mill/uL (4.7-6.1); RED CELL DISTRIBUTION WIDTH 16.4 % (11.6-14.6)
[2024-12-12 15:53] LABS: UREA NITROGEN BLOOD 25 mg/dL (9-23)
[2024-12-12 15:54] LABS: ASPARTATE AMINOTRANSFERASE 28 IU/L (<34); TROPONIN I HIGH SENSITIVITY 21 ng/L (3.0-53)
[2024-12-12 15:55] LABS: BILIRUBIN DIRECT 0.3 mg/dL (<=3.0); BILIRUBIN TOTAL 0.9 mg/dL (0.1-1.0); INR 1.0; PROTEIN TOTAL 8.4 g/dL (6.0-8.3)
[2024-12-12 16:20] LABS: EOSINOPHILS % MANUAL 9.0 % (0.0-5.0); MYELOCYTES % 2.0 % (0-0); NEUTROPHILS % MANUAL 57.0 % (45.0-75.0); PLATELET ESTIMATE NORMAL
[2024-12-12 16:21] LABS: LYMPHOCYTES % MANUAL 22.0 % (20.0-50.0)
[2024-12-12 16:22] LABS: MONOCYTES % MANUAL 10.0 % (2.0-8.0)
[2024-12-12 16:27] LABS: CREATININE 6.4 mg/dL (0.6-1.3)
[2024-12-12 17:43] VITALS: BP 119/98; PULSE 102; RESP 24; TEMP 36.3068
[2024-12-12 18:00] VITALS: BP 119/98; PULSE 103; RESP 15; TEMP 36.6; O2SAT 99
[2024-12-12] MEDS ORDERED: ACET160S2 PO (19:40)
[2024-12-12] MEDS ORDERED: MOM MT (19:52)
[2024-12-12] MEDS ORDERED: DOCU-422 MT (19:52)
[2024-12-12] MEDS ORDERED: TOPUD PO (19:52)
[2024-12-12] MEDS ORDERED: FAMO20TA8 PO (19:52)
[2024-12-12] MEDS ORDERED: VITA-261 PO (19:52)
[2024-12-12] MEDS ORDERED: PRED5DRO22 BOTHEYE (19:57)
[2024-12-12] MEDS ORDERED: CHOL400D7 PO (19:57)
[2024-12-12] MEDS ORDERED: SEVE0.8P PO (19:57)
[2024-12-12] MEDS ORDERED: FOLI0.8T53 PO (19:57)
[2024-12-12 20:00] VITALS: BP 102/79; PULSE 100; RESP 14; TEMP 36.8; O2SAT 99
[2024-12-12] MEDS ORDERED: CLONIDINE 0.1MG TABLET PO PRN (20:00)
[2024-12-12] MEDS ORDERED: LORAZEPAM 0.5MG TABLET PO PRN (20:00)
[2024-12-12] MEDS ORDERED: IPRATROPIUM/ALBUTEROL 0.5-3(2.5)MG/3ML NEB HHN PRN (20:00)
[2024-12-12] MEDS: SODIUM ZIRCONIUM CYCLOSILICATE 10GM/PACKET PO SCH (20:00)
[2024-12-12] MEDS ORDERED: DEXTROSE 50% WATER 50ML SYRINGE IV PRN (20:00)
[2024-12-12] MEDS ORDERED: ONDANSETRON HCL 4MG/2ML INJ IV PRN (20:00)
[2024-12-12] MEDS ORDERED: DOCUSATE SODIUM 100MG CAPSULE PO PRN (20:00)
[2024-12-12] MEDS ORDERED: GUAIFENESIN 200MG/10ML SUGAR FREE UDC PO PRN (20:00)
[2024-12-12] MEDS ORDERED: ACETAMINOPHEN 325MG TABLET PO PRN (20:00)
[2024-12-12] MEDS ORDERED: CLON0.1T PO (20:01)
[2024-12-12] MEDS: INSULIN LISPRO 100 UNITS/ML SUBCUT SCH (20:40)
[2024-12-12] MEDS: BLOOD SUGAR DIAGNOSTIC STRIP TEST SCH (20:41)
[2024-12-12] MEDS: FAMOTIDINE 20MG TABLET PO SCH (21:24)
[2024-12-12 22:00] VITALS: BP 93/68; PULSE 98; RESP 23; O2SAT 95
[2024-12-12 22:17] LABS: TROPONIN I HIGH SENSITIVITY 20 ng/L (3.0-53)
[2024-12-12 22:33] LABS: TRIGLYCERIDE 103.0 mg/dL (0-150)
[2024-12-12 22:34] LABS: LDL CHOLESTEROL 25.0 mg/dL (5-100)
[2024-12-12 22:38] LABS: T4 FREE 1.63 ng/dL (0.89-1.76)
[2024-12-13] VITALS (13 sets, daily range): BP systolic 94–130; BP diastolic 70–76; PULSE 90–107; RESP 10–30; TEMP 35.9–37.3; O2SAT 93–100
[2024-12-13 07:33] LABS: HEMATOCRIT. 43.5 % (42.0-52.0); HEMOGLOBIN. 13.7 g/dL (14.0-18.0); MEAN PLATELET VOLUME 7.8 fl (7.4-10.4); PLATELET 181 x1000/uL (130-400); RED BLOOD CELL COUNT 4.47 mill/uL (4.7-6.1); RED CELL DISTRIBUTION WIDTH 17.4 % (11.6-14.6)
[2024-12-13 07:49] LABS: UREA NITROGEN BLOOD 27 mg/dL (9-23)
[2024-12-13 07:50] LABS: PHOSPHORUS 4.3 mg/dL (2.5-4.9)
[2024-12-13] MEDS: ENOXAPARIN 30MG/0.3ML SYR SUBCUT SCH (08:12)
[2024-12-13 08:16] LABS: CREATININE 7.5 mg/dL (0.6-1.3)
[2024-12-13] MEDS: CEFTRIAXONE 2GM/50ML 50 ML IV SCH (14:44)
[2024-12-13] MEDS: AZITHROMYCIN 500MG/250ML 250 ML IV SCH (14:44)
[2024-12-13] MEDS ORDERED: AZITHROMYCIN 500MG/250ML 250 ML IV SCH (15:00)
[2024-12-13] MEDS: SEVELAMER CARBONATE 800 MG TABLET PO SCH (17:11)
[2024-12-13] MEDS: ACETAMINOPHEN 325MG TABLET PO PRN (17:15)
[2024-12-13 21:35] LABS: HEPATITIS A AB IGM NEGATIVE (Negative); HEPATITIS B CORE AB IGM NEGATIVE (Negative)
[2024-12-13 21:36] LABS: HEPATITIS C AB NON REACTIVE (Neg) (Negative)
[2024-12-14] VITALS (15 sets, daily range): BP systolic 88–130; BP diastolic 56–97; PULSE 86–103; RESP 15–27; TEMP 35.9–37.1; O2SAT 92–100
[2024-12-14 05:49] LABS: UREA NITROGEN BLOOD 46.0 mg/dL (9-23)
[2024-12-14 06:09] LABS: CREATININE 8.9 mg/dL (0.6-1.3)
[2024-12-14] MEDS: CALCITRIOL 0.25MCG CAPSULE PO SCH (08:47)
[2024-12-14] MEDS: HYDRALAZINE HCL 10MG TABLET PO SCH (13:45)
[2024-12-14 17:03] LABS: EOSINOPHILS % MANUAL 4.0 % (0.0-5.0); LYMPHOCYTES % MANUAL 17.0 % (20.0-50.0); METAMYELOCYTES % 1.0 % (0-0); MONOCYTES % MANUAL 12.0 % (2.0-8.0); MYELOCYTES % 2.0 % (0-0); NEUTROPHILS % MANUAL 64.0 % (45.0-75.0); PLATELET ESTIMATE NORMAL
[2024-12-14 20:21] LABS: LACTATE DEHYDROGENASE 368.0 IU/L (120-246)
[2024-12-14 20:22] LABS: PROTEIN TOTAL 7.4 g/dL (6.0-8.3)
[2024-12-15] VITALS: BP 104/68; PULSE 98; RESP 18; TEMP 35.5; O2SAT 96
[2024-12-15 04:00] VITALS: BP 92/58; PULSE 92; RESP 20; TEMP 35.6; O2SAT 98
[2024-12-15 08:00] VITALS: BP 91/61; PULSE 97; RESP 18; TEMP 35.6; O2SAT 95
[2024-12-15 08:04] LABS: PLATELET 247 x1000/uL (130-400); RED BLOOD CELL COUNT 4.62 mill/uL (4.7-6.1); RED CELL DISTRIBUTION WIDTH 16.5 % (11.6-14.6)
[2024-12-15 08:06] LABS: UREA NITROGEN BLOOD 40.0 mg/dL (9-23)
[2024-12-15 08:58] LABS: CREATININE 7.9 mg/dL (0.6-1.3)
[2024-12-15 12:00] VITALS: BP 97/62; PULSE 96; RESP 18; TEMP 35.6; O2SAT 96
[2024-12-15 12:46] LABS: PROTEIN BODY FLUID 4.6 gm/dL
[2024-12-15 13:01] LABS: BODY FLUID MONOCYTES 4 %; BODY FLUID RBC 5550 /cu mm (0-2000); BODY FLUID WBC 850 /cu mm (0-200)
[2024-12-15 16:00] VITALS: BP 93/60; PULSE 96; RESP 18; TEMP 36.7; O2SAT 96
[2024-12-15 20:00] VITALS: BP 106/70; PULSE 117; RESP 18; TEMP 36.6; O2SAT 99
[2024-12-16] VITALS: BP_SYST 91; BP_SYST 92; BP_DIAS 48; BP_DIAS 65; PULSE 105; PULSE 92; RESP 19; RESP 22; TEMP 36.2; TEMP 36.5; O2SAT 96
[2024-12-16 04:00] VITALS: BP 95/58; PULSE 104; RESP 18; TEMP 36.7; O2SAT 96
[2024-12-16 08:00] VITALS: BP 80/49; PULSE 103; RESP 24; TEMP 36.3; O2SAT 94
[2024-12-16] MEDS: SODIUM CHLORIDE 0.9% 500 ML IV ONE (11:30)
[2024-12-16] MEDS: MIDODRINE HCL 5MG TABLET PO SCH (11:41)
[2024-12-16 12:00] VITALS: BP 112/77; PULSE 92; RESP 21; TEMP 36.3; O2SAT 90
[2024-12-16 16:00] VITALS: BP 103/73; PULSE 85; RESP 20; TEMP 36.2; O2SAT 96
[2024-12-16 18:24] LABS: UREA NITROGEN BLOOD 55.0 mg/dL (9-23)
[2024-12-16 18:26] LABS: PHOSPHORUS 5.2 mg/dL (2.5-4.9)
[2024-12-16 18:34] LABS: CREATININE 10.2 mg/dL (0.6-1.3)
[2024-12-16 18:58] LABS: BG BASE EXCESS 3.0 mmol/L (-2.0-3.0); BG CARBOXYHEMOGLOBIN 0.9 % (0.5-1.5); BG DEOXYHEMOGLOBIN 11.3 % (0.0-5.0); BG FRACTION INSPIRED OXYGEN 28; BG HCO3 ACT 28.9 mmol/L (21.0-28.0); BG METHEMOGLOBIN 0.3 % (0.5-1.5); BG OXYGEN SATURATION 88.6 % (94.0-98.0); BG OXYHEMOGLOBIN 87.5 % (94.0-98.0); BG PCO2 48.9 mmHg (35.0-48.0); BG PH 7.390 (7.350-7.450); BG PO2 58.8 mmHg (83.0-108.0); BG SAMPLE SITE RIGHT RADIAL; BG TOTAL HEMOGLOBIN 15.0 g/dL (13.5-17.5); BG VENT MODE NASAL CANNULA
[2024-12-16 20:00] VITALS: BP 125/94; PULSE 102; RESP 22; TEMP 36.3; O2SAT 94
[2024-12-17] VITALS (14 sets, daily range): BP systolic 92–132; BP diastolic 46–82; PULSE 75–100; RESP 16–20; TEMP 36.2–36.7; O2SAT 95–99
[2024-12-17] MEDS ORDERED: SODIUM CHLORIDE 0.9% 500 ML IV NR (08:00)
[2024-12-17] MEDS: SODIUM CHLORIDE 0.9% 1,000 ML IV SCH (09:41)
[2024-12-18] VITALS: BP 134/82; PULSE 87; RESP 20; TEMP 36.6; O2SAT 100
[2024-12-18 04:00] VITALS: BP 102/62; PULSE 82; RESP 19; TEMP 36.6; O2SAT 100
[2024-12-18 08:00] VITALS: BP 103/66; PULSE 81; RESP 16; TEMP 36.3; O2SAT 96
[2024-12-18] MEDS: BLOOD SUGAR DIAGNOSTIC STRIP TEST SCH (08:13)
[2024-12-18] MEDS: INSULIN LISPRO 100 UNITS/ML SUBCUT SCH (08:14)
[2024-12-18 12:00] VITALS: BP 101/70; PULSE 99; RESP 16; TEMP 35.9; O2SAT 96
[2024-12-18 16:00] VITALS: BP 100/56; PULSE 85; RESP 16; TEMP 36.2; O2SAT 96
[2024-12-18 20:00] VITALS: BP 109/69; PULSE 95; RESP 18; TEMP 36.4; O2SAT 98
[2024-12-19] VITALS (14 sets, daily range): BP systolic 77–121; BP diastolic 52–77; PULSE 72–95; RESP 16–18; TEMP 36.1–36.9; O2SAT 93–97
[2024-12-19 06:53] LABS: HEMATOCRIT. 39.2 % (42.0-52.0); HEMOGLOBIN. 13.0 g/dL (14.0-18.0); MEAN PLATELET VOLUME 8.0 fl (7.4-10.4); PLATELET 281 x1000/uL (130-400); RED BLOOD CELL COUNT 4.27 mill/uL (4.7-6.1); RED CELL DISTRIBUTION WIDTH 16.1 % (11.6-14.6)
[2024-12-19 07:12] LABS: UREA NITROGEN BLOOD 64.0 mg/dL (9-23)
[2024-12-19 07:15] LABS: PHOSPHORUS 4.9 mg/dL (2.5-4.9)
[2024-12-19 07:28] LABS: CREATININE 11.0 mg/dL (0.6-1.3)
[2024-12-19] MEDS: SODIUM ZIRCONIUM CYCLOSILICATE 10GM/PACKET PO NR (09:12)
[2024-12-19 17:02] LABS: EOSINOPHILS % MANUAL 8.0 % (0.0-5.0); LYMPHOCYTES % MANUAL 11.0 % (20.0-50.0); MONOCYTES % MANUAL 10.0 % (2.0-8.0); NEUTROPHILS % MANUAL 71.0 % (45.0-75.0); PLATELET ESTIMATE NORMAL
[2024-12-19] MEDS ORDERED: ALBUTEROL (0.083%) 2.5MG/3ML NEB HHN SCH (18:15)
[2024-12-19] MEDS ORDERED: ALBUTEROL (0.5%) 2.5MG/0.5ML NEB HHN SCH (18:30)
[2024-12-19] MEDS: MIDODRINE HCL 5MG TABLET PO SCH (21:45)
[2024-12-20] VITALS (11 sets, daily range): BP systolic 90–136; BP diastolic 50–86; PULSE 75–94; RESP 17–20; TEMP 36.2–36.9; O2SAT 93–98
[2024-12-20 06:18] LABS: UREA NITROGEN BLOOD 52 mg/dL (9-23)
[2024-12-20 06:20] LABS: PHOSPHORUS 4.0 mg/dL (2.5-4.9)
[2024-12-20 06:50] LABS: CREATININE 9.6 mg/dL (0.6-1.3)
[2024-12-20] MEDS: SODIUM ZIRCONIUM CYCLOSILICATE 10GM/PACKET PO SCH (12:26)
[2024-12-20] MEDS ORDERED: CALC0.253 PO (12:45)
[2024-12-20] MEDS ORDERED: MIDO5TAB4 PO (12:45)
[2024-12-20] MEDS ORDERED: SEVE800T8 PO (12:45)
== END 2024-12-20 17:30 | DRG 193 ==
LOC: ER 14:22 → ENRESERV 16:40 → 5EST 16:49 → 6WST 12-14 16:25
PROVIDERS: ADMIT Hospitalist; ATTEND Hospitalist
PROC: 5A09357 Assistance with Respiratory Ventilation, Less than 24 Consecutive Hours, Continuous Positive Airway Pressure (ICD-10-PCS; 2024-12-12)
PROC: 5A1D70Z Performance of Urinary Filtration, Intermittent, Less than 6 Hours Per Day (ICD-10-PCS; 2024-12-14)
PROC: 0W9B3ZZ Drainage of Left Pleural Cavity, Percutaneous Approach (ICD-10-PCS; principal; 2024-12-15)
PROC: 5A1D70Z Performance of Urinary Filtration, Intermittent, Less than 6 Hours Per Day (ICD-10-PCS; 2024-12-17)
PROC: 0W993ZZ Drainage of Right Pleural Cavity, Percutaneous Approach (ICD-10-PCS; 2024-12-18)
PROC: 5A1D70Z Performance of Urinary Filtration, Intermittent, Less than 6 Hours Per Day (ICD-10-PCS; 2024-12-19)
PROC: 5A1D70Z Performance of Urinary Filtration, Intermittent, Less than 6 Hours Per Day (ICD-10-PCS; 2024-12-20)
DX: J18.9 Pneumonia, unspecified organism (principal); G82.50 Quadriplegia, unspecified; J96.01 Acute respiratory failure with hypoxia; I50.23 Acute on chronic systolic (congestive) heart failure; N18.6 End stage renal disease; I13.2 Hypertensive heart and chronic kidney disease with heart failure and with stage 5 chronic kidney disease, or end stage renal disease; N25.81 Secondary hyperparathyroidism of renal origin; D72.10 Eosinophilia, unspecified; E11.22 Type 2 diabetes mellitus with diabetic chronic kidney disease; E87.5 Hyperkalemia; B35.1 Tinea unguium; G89.29 Other chronic pain; E78.5 Hyperlipidemia, unspecified; K21.9 Gastro-esophageal reflux disease without esophagitis; M75.00 Adhesive capsulitis of unspecified shoulder; F41.9 Anxiety disorder, unspecified; J98.4 Other disorders of lung; M24.561 Contracture, right knee; M24.562 Contracture, left knee; Z99.2 Dependence on renal dialysis; Z79.4 Long term (current) use of insulin; Z79.899 Other long term (current) drug therapy; Z87.891 Personal history of nicotine dependence
CPT/HCPCS: 32555; 36415; 36600; 71045; 76604; 80048; 80061; 80076; 82040; 82375; 82805; 82962; 83036; 83605; 83615; 83735; 83880; 83970; 83986; 84100; 84145; 84155; 84439; 84443; 84484; 85025; 85027; 86705; 86709; 87340; 90935; 93005; 93306; 93970; 94070; 94660; 94664; 97166; 98960; 99291; A4606; J0456; J0696; J1650; J7030